=== PATIENT | female | born 1970 ===

== ENCOUNTER 2016-08-06 19:53 | Inpatient (IN) | payer MEDICAID ==
[~2016-08-06] VITALS: Ht 154.9 cm; Wt 75.6 kg
[2016-08-06] MEDS ORDERED: SOD CHLORIDE 0.9% 1,000 ML IV STA (23:47)
[2016-08-06] MEDS ORDERED: ONDANSETRON 4 MG INJ IV STA (23:47)
[2016-08-06] MEDS ORDERED: morphine 4 MG/ML VIAL IV STA (23:47)
--- NOTE | 2016-08-07 00:56 | RADRPT ---
PROCEDURE: US Pelvis. CLINICAL INDICATION: Pelvic pain and swelling TECHNIQUE: Multiple sonographic images of the pelvis were obtained utilizing a transabdominal and endovaginal technique. The images were reviewed on a PACS workstation. COMPARISON: None available FINDINGS: Uterus: Normal in size, contour and echogenicity with no evidence for myometrial masses. Size is est imated at 10.2 x 5.2 x 4.6 cm. Cervix: Trace amount of fluid is present Endometrium: Normal in thickness for the patient's provided age and presumed premenopausal status; 11.3 mm. Right ovary / adnexa: Heterogeneous in echotexture and enlarged in size estimated at 14.1 x 11.4 x 8.5 cm. No evidence for solid masses, normal blood flow on Doppler interrogation. Multiple ovarian cysts are present the largest estimated at 7.6 x 6.8 x 5.6 cm. There is some internal hemorrhage or debris within some of the cysts. A small amount of free fluid is present in the right adnexa. Left ovary/adnexa: The ovary is not visualized. There is no evidence of adnexal mass. Cul-de-sac: Small amount of free fluid. RPTAT:HJJR IMPRESSION: 1. Right ovarian enlargement caused by multiple cysts of the right ovary the largest measuring 7.6 cm in greatest dimension with a small amount of free fluid in the right adnexa and cul-de-sac. Sono graphic follow-up is recommended. 2. Sonographically normal uterus with normal endometrial thickness for the patient's age and presum ed premenopausal status. 3. Nonvisualization of the left ovary. Physician Mykel Date Time Electronically viewed and signed by Physician Mykel on 08/07/2016 00:56 JR/
[2016-08-07 01:45] LABS: ADD UMIC YES; URINE BILIRUBIN (Dip) NEGATIVE (NEGATIVE); URINE BLOOD (Dip) TRACE (NEGATIVE); URINE COLOR LT. YELLOW (YELLOW); URINE GLUCOSE (Dip) NEGATIVE (NEGATIVE); URINE KETONES (Dip) TRACE (NEGATIVE); URINE LEUKOCYTE ESTERASE (Dip) NEGATIVE (NEGATIVE); URINE NITRITE (Dip) NEGATIVE (NEGATIVE); URINE TOTAL PROTEIN (Dip) NEGATIVE (NEGATIVE); URINE UROBILINOGEN (Dip) 0.2 E.U./dL (0.1-1.0)
[2016-08-07 01:47] LABS: BASOPHILS % 0.4 % (0.0-2.0); EOSINOPHILS # 0.1 10^3/ul (0.0-0.5); EOSINOPHILS % 1.5 % (0.0-7.0); HEMATOCRIT 32.7 % (37.0-47.0); HEMOGLOBIN 10.9 g/dl (12.0-16.0); LYMPHOCYTES # 1.7 10^3/ul (0.8-2.9); LYMPHOCYTES % 21.6 % (15.0-51.0); MEAN CORPUSCULAR HEMOGLOBIN 26.8 pg (29.0-33.0); MEAN CORPUSCULAR HGB CONC 33.3 g/dl (32.0-37.0); MEAN CORPUSCULAR VOLUME 80.5 fl (82.0-101.0); MEAN PLATELET VOLUME 8.6 fl (7.4-10.4); MONOCYTE # 0.5 10^3/ul (0.3-0.9); MONOCYTES % 5.9 % (0.0-11.0); NEUTROPHIL # 5.4 10^3/ul (1.6-7.5); NEUTROPHILS % 70.6 % (39.0-77.0); PLATELET COUNT 357 10^3/UL (140-440); RED BLOOD COUNT 4.06 10^6/ul (4.20-5.40); RED CELL DISTRIBUTION WIDTH 13.7 % (11.5-14.5); UNCORRECTED WBC 7.7 10^3/ul (4.8-10.8); WHITE BLOOD COUNT 7.7 10^3/ul (4.8-10.8)
[2016-08-07 01:50] LABS: CONDITION 1; LH ANALYZER COMMENTS 1
[2016-08-07 01:59] LABS: ALBUMIN 4.4 g/dl (3.3-4.9)
[2016-08-07 02:00] LABS: POTASSIUM 3.5 mmol/L (3.5-5.1)
[2016-08-07 02:02] LABS: ALBUMIN/GLOBULIN RATIO 1.33; BILIRUBIN,INDIRECT 0.4 mg/dl (0-1.1); BILIRUBIN,TOTAL 0.4 mg/dl (0.2-1.3); CREATININE 0.61 mg/dl (0.44-1.00); TOTAL PROTEIN 7.7 g/dl (6.1-8.1)
[2016-08-07 02:03] LABS: CALCIUM 9.5 mg/dl (8.4-10.2)
[2016-08-07] MEDS ORDERED: SOD CHLORIDE 0.9% 0 ML ONE (02:06)
[2016-08-07] MEDS ORDERED: IOHEXOL 300MG/ML 150 ML BTL ONE ×2 (02:06→02:54)
--- NOTE | 2016-08-07 02:07 | ERA ---
ER Documentation Chief Complaint Date/Time DATE: 08/07/16 Chief Complaint Right pelvic pain (BRI MARTINEZ PA-C) HPI The patient is a 46-year-old female who presents to the Emergency Department with complaint of sudden onset of right pelvic pain that began at 4:00 pm today. The patient reports that over the past 9 months she has been experiencing intermittent right pelvic pain. She has seen multiple different providers for evaluation, but no source of her pain has been identified. Six weeks ago the patient had an abdominoplasty. Shortly after the surgery, the patient had recurrence of her right pelvic pain, and went to see her doctor, Dr. Gabriel (Oscar Saenz, last week. The patient had an ultrasound performed, where, per the MD's note, a "solid right ovarian mass" was noted. Due to this finding the patient was advised to follow up at the Emergency Department for MRI with IV contrast for evaluation. However, because the patient's pain was minimal, she decided to wait until doing so. Today, at 4:00 pm, the patient had sudden onset of right pelvic pain. The pain is sharp in nature, which she currently rates as 10/10. She notes associated nausea, with multiple episodes of nonbilious, nonbloody emesis. She denies any vaginal bleeding or new vaginal discharge. Denies fevers or chills. Denies constipation or diarrhea. The patient's last bowel movement was this morning, and normal. The patient's last pap smear was September 2015, and normal. Last mammogram was September 2015, and normal. The patient's maternal aunt had ovarian cancer. The patient is A0. She experiences monthly menstrual cycles with menorrhagia. (BRI MARTINEZ PA-C) ROS All systems reviewed and are negative except as per history of present illness. 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 Patient is clutching the emesis bag, actively vomiting. HEENT: Head is normocephalic, atraumatic. No scleral pallor or icterus. Conjunctiva pink. Mildly dry mucous membranes. NECK: Supple. RESPIRATORY: Lungs are clear to auscultation bilaterally. Equal breath sounds. Normal expiratory effort. CARDIOVASCULAR: Regular rate and rhythm. S1 and S2 normal. No murmurs. Distal pulses are palpable, 2+ bilaterally. Capillary refill is less than 2 seconds. GASTROINTESTINAL: Abdomen is soft and non-distended. Moderate tenderness to palpation over the right pelvic region. Right-sided abdominal fullness and pain. Positive guarding. No rebound tenderness. Positive bowel sounds. No pulsatile masses. Abdominoplasty incisional scars noted to suprapubic abdomen. Umbilical incisional scar. FLANK: No CVA tenderness. EXTREMITIES: No clubbing, cyanosis, or edema. Normal skin perfusion. Moving all extremities. Muscle tone is normal. No focal swelling or erythema. NEUROLOGIC: The patient is alert, awake, and oriented x 3. No focal neurologic deficits. INTEGUMENT: Abdominoplasty incisional scar noted. No dehiscence. PSYCHIATRIC: Cooperative. (BRI MARTINEZ PA-C) Result Diagram: 08/07/1610008/07/16 0101 Results 24 hrs Laboratory Tests Test 08/07/16 01:01 08/07/16 01:05 Alanine Aminotransferase (ALT/SGPT) 24IU/L Albumin 4.4g/dl Albumin/Globulin Ratio 1.33 Alkaline Phosphatase 67IU/L Anion Gap 20 Aspartate Amino Transf (AST/SGOT) 25IU/L Basophils # 0.010^3/ul Basophils % 0.4% Blood Morphology Comment Blood Urea Nitrogen 13mg/dl CA 125 Antigen 28.7U/ml CA 19-9 Antigen 44.1U/ml Calcium Level 9.5mg/dl Carbon Dioxide Level 26mmol/L Carcinoembryonic Antigen 1.0ng/ml Chloride Level 102mmol/L Creatinine 0.61mg/dl Direct Bilirubin 0.00mg/dl Eosinophils # 0.110^3/ul Eosinophils % 1.5% Globulin 3.30g/dl Glucose Level 95mg/dl Hematocrit 32.7% Hemoglobin 10.9g/dl Indirect Bilirubin 0.4mg/dl Lipase 68U/L Lymphocytes # 1.710^3/ul Lymphocytes % 21.6% Mean Corpuscular Hemoglobin 26.8pg Mean Corpuscular Hemoglobin Concent 33.3g/dl Mean Corpuscular Volume 80.5fl Mean Platelet Volume 8.6fl Monocytes # 0.510^3/ul Monocytes % 5.9% Neutrophils # 5.410^3/ul Neutrophils % 70.6% Nucleated Red Blood Cells # 0.010^3/ul Nucleated Red Blood Cells % 0.0/100WBC Platelet Count 10175^3/UL Potassium Level 3.5mmol/L Red Blood Count 4.0610^6/ul Red Cell Distribution Width 13.7% Sodium Level 144mmol/L Total Bilirubin 0.4mg/dl Total Protein 7.7g/dl White Blood Count 7.710^3/ul Urine Bilirubin NEGATIVE Urine Clarity CLEAR Urine Color LT. YELLOW Urine Glucose NEGATIVE% Urine Hemoglobin TRACE Urine Ketones TRACE Urine Leukocyte Esterase NEGATIVE Urine Microscopic RBC 0-2/HPF Urine Microscopic WBC 0-2/HPF Urine Nitrite NEGATIVE Urine Specific [place] 1.025 Urine Squamous Epithelial Cells FEW Urine Total Protein NEGATIVE Urine Urobilinogen 0.2 E.U./dL Urine pH 6.0 Current Medications Medications (Trade) Dose Ordered Sig/Zack Route PRN Reason Start Time Stop Time Status Last Admin Dose Admin Sodium Chloride (NS) 1,000 ml @ 1,000 mls/hr Q1H STAT IV 08/06/16 23:47 08/07/16 00:46 DC 08/07/16 01:16 Morphine Sulfate (morphine) 4 mg ONCE STAT IV 08/06/16 23:47 08/06/16 23:49 DC 08/07/16 01:16 Ondansetron HCl (Zofran Inj) 4 mg ONCE STAT IV 08/06/16 23:47 08/06/16 23:49 DC 08/07/16 01:16 IV Flush 10 ml 10 ml STK-MED ONCE .ROUTE 08/07/16 02:06 08/07/16 02:07 DC 08/07/16 02:06 Sodium Chloride (NS) 0 ml @ ud STK-MED ONCE .ROUTE 08/07/16 02:06 08/07/16 02:07 DC Iohexol 150 ml 150 ml STK-MED ONCE .ROUTE 08/07/16 02:06 08/07/16 02:07 DC 08/07/16 02:06 Sodium Chloride (NS) 100 ml @ ud STK-MED ONCE .ROUTE 08/07/16 02:54 08/07/16 02:55 DC 08/07/16 03:08 Iohexol (Omnipaque 300mg/ ml) 150 ml STK-MED ONCE .ROUTE 08/07/16 02:54 08/07/16 02:55 DC 08/07/16 03:08 Ondansetron HCl (Zofran Inj) 4 mg BRIDGE ORDER PRN IV NAUSEA AND/OR VOMITING 08/07/16 03:30 08/08/16 03:29 Acetaminophen (Tylenol Tab) 650 mg ER BRIDGE PRN PO MILD PAIN/FEVER 08/07/16 03:30 08/08/16 03:29 (DARRELL MENDOZA DO) Procedures/MDM The patient's case was reviewed and discussed with Dr. Mendoza, who agrees with the plan of care including labs, treatment and advanced imaging as appropriate. Dr. Mendoza recommends consultation of WOODWIND INSTRUMENTS INSPECTOR. DIAGNOSTIC TESTS AND INTERPRETATION: PROCEDURE: US Pelvis. CLINICAL INDICATION: Pelvic pain and swelling TECHNIQUE: Multiple sonographic images of the pelvis were obtained utilizing a transabdominal and endovaginal technique. The images were reviewed on a PACS workstation. COMPARISON: None available FINDINGS: Uterus: Normal in size, contour and echogenicity with no evidence for myometrial masses. Size is estimated at 10.2 x 5.2 x 4.6 cm. Cervix: Trace amount of fluid is present Endometrium: Normal in thickness for the patient's provided age and presumed premenopausal status; 11.3 mm. Right ovary / adnexa: Heterogeneous in echotexture and enlarged in size estimated at 14.1 x 11.4 x 8.5 cm. No evidence for solid masses, normal blood flow on Doppler interrogation. Multiple ovarian cysts are present the largest estimated at 7.6 x 6.8 x 5.6 cm. There is some internal hemorrhage or debris within some of the cysts. A small amount of free fluid is present in the right adnexa. Left ovary/adnexa: The ovary is not visualized. There is no evidence of adnexal mass. Cul-de-sac: Small amount of free fluid. IMPRESSION: 1. Right ovarian enlargement caused by multiple cysts of the right ovary the largest measuring 7.6 cm in greatest dimension with a small amount of free fluid in the right adnexa and cul-de-sac. Sonographic follow-up is recommended. 2. Sonographically normal uterus with normal endometrial thickness for the patient's age and presumed premenopausal status. 3. Nonvisualization of the left ovary. Physician Mykel Date Time Electronically viewed and signed by Physician Mykel on 08/07/2016 00:56 PROCEDURE: CT Abdomen and pelvis with contrast. CLINICAL INDICATION: Abdominal pain. TECHNIQUE: CT scan of the abdomen and pelvis with contrast was performed on a multi-detector high-resolution CT scanner. The patient was scanned following the uncomplicated intravenous administration of 100 cc of Omnipaque 300. Coronal and sagittal reformatted images were obtained from the axial source images. Images were reviewed on a high-resolution PACS workstation. One or more of the following dose reduction techniques were used: * Automated exposure control. * Adjustment of the mA and/or kV according to patient size. * Use of iterative reconstruction technique. Exam CTD/vol = 12.22 mGy. Total exam DLP = 724.90 mGy-cm. COMPARISON: None. FINDINGS: Evaluation of the lung bases demonstrates no pleural or parenchymal disease. Abdomen: The liver is normal in size. There is no focal mass or dilatation of the biliary tree. The gallbladder is not distended. The spleen, pancreas and bilateral adrenal glands are within normal limits. Bilateral kidneys are normal in size with symmetric enhancement. There is no focal mass, hydronephrosis or hydroureter. There is no retroperitoneal adenopathy. The abdominal aorta is of normal caliber. There is no abnormal bowel wall thickening or distension. There is no bowel obstruction or free air. A normal appendix is identified. There is no diverticulosis or diverticulitis. There is no ascites. Pelvis: The bladder is unremarkable. There is a large multicystic structure with soft tissue components within the right adnexa measuring 12.0 x 11.0 cm. The uterus is unremarkable. There is mild pelvic free fluid. There are small cyst within the left ovary with the largest measuring 1.7 x 1.4 cm. There is no significant pelvic adenopathy. There is subcutaneous stranding within the anterior pelvic wall with a small fluid collection measuring 10.5 cm AP by 4.0 cm transverse by 3.7 cm. Evaluation of the osseous structures demonstrates multiple small sclerotic densities within the pelvis and proximal femurs. IMPRESSION: Large multicystic structure with soft tissue components within the right adnexa suspicious for cystadenoma/cystadenocarcinoma. Mild pelvic free fluid. Multiple small sclerotic densities within the pelvis and bilateral proximal femurs could represent bone islands; however, follow-up for metastatic disease is recommended. Subcutaneous stranding within the anterior pelvic wall with small fluid collection measuring 10.5 x 4.0 x 3.7 cm. CONSULTATION: WOOD[employer] INSTRUMENTS INSPECTOR: Dr. Lora 01:19 am. Discussed patient presentation and imaging results. Dr. Lora recommends obtaining tumor markers (CEA, CA 19-9, CA125), and states that she will come down and evaluate the patient bedside. She agrees to consult on the patient's case. 02:30 Dr. Lora evaluated the patient bedside. Right-sided abdominal and pelvic fullness noted, with discomfort. Additionally, a left breast mass noted at 3-[address] Lora, and she recommends ultrasound imaging for further evaluation. Dr. Lora states that it is possible that the patient is having intermittent torsion vs. adnexal mass/torsion vs. pain secondary to hemorrhagic cysts vs. large ovarian/abdominal mass. She recommends admitting the patient under the hospitalist to Med/Surg, with WOOD[employer] INSTRUMENTS INSPECTOR consultation. MEDICAL DECISION MAKING: This is a 46-year-old female presenting to the Emergency Department with complaint of sudden right pelvic pain. Patient had tenderness to palpation of the right pelvic region, with positive guarding. She had right-sided abdominal fullness and tenderness noted. The patient notes that approximately one week ago she obtained outpatient ultrasound imaging, which revealed a solid right ovarian mass. She developed sudden pain at 4:00 pm today, with associated nausea and multiple episodes of nonbilious, nonbloody emesis. Ultrasound imaging was performed upon presentation to the ED, which revealed right ovarian enlargement caused by multiple cysts of the right ovary, the largest measuring 7.6 x 6.8 x 5.6 cm, with a small amount of free fluid in the right adnexa and cul-de-sac. There was some internal hemorrhage vs. debris noted in some of the cysts. Given the patient's pain and recent history, OB/ DELIVERY AND MAIL SORTER consultation was obtained. Dr. Lora, WOODWIND INSTRUMENTS INSPECTOR, recommends obtaining tumor markers, and admitting the patient with WOODWIND INSTRUMENTS INSPECTOR consultation. CT imaging performed, which revealed a large multicystic structure with soft tissue components within the right adnexa suspicious for cystadenoma/ cystadenocarcinoma. There are also multiple small sclerotic densities within the pelvis and bilateral proximal femurs. The patient will be admitted to Med/ Surg, under the care of Dr. Washington, for further evaluation and management. Ultrasound imaging of the left breast in pending. WOOD[employer] INSTRUMENTS INSPECTOR will consult. (BRI MARTINEZ PA-C) Saw this patient along with the physician's gift shop assistant. She has a large irregular pelvic mass that is likely metastatic. We spoke with the on-call developer advocate, Dr. Lora, who is seeing the patient in consult for this pelvic mass. She was in after she had [place] seen the patient with the CT results came back in she was made aware of the results. She plans to obtain further imaging in the a.m. I communicate with Dr. medina to admit the patient to medical surgical floor. Patient is also aware of these results in her pain is well controlled currently. (DARRELL MENDOZA DO) Departure Diagnosis: Primary Impression: Ovarian mass, right Additional Impressions: Right ovarian enlargement Pelvic pain Condition: Stable BRI MARTINEZ PA-C Aug 07, 2016 02:07 DARRELL MENDOZA DO Aug 07, 2016 03:47
--- NOTE | 2016-08-07 02:48 | CONS ---
Date/Time of Note Date/Time of Note DATE: 08/07/16 TIME: 02:45 Assessment/Plan Assessment/Plan Chief Complaint/Hosp Course 36-year-old female with history of right-sided lower abdominal pain significantly worsened since yesterday associated with nausea and vomiting with ultrasound and CT findings consistent with a large pelvic mass CT finding concerning for possible malignancy per preliminary report by ERAN at the emergency department to me Formal report is still pending Currently no evidence of acute abdomen Tumor markers were ordered and pending Patient currently is hemodynamically stable and pain controlled with IV pain medication. Patient will be admitted to [facility] We will continue pain control Will be followed by labors ICT HELP DESK OFFICER tomorrow after the labs Consider consultation with LEATHER SKINNER oncologist by upcoming labors tomorrow. Will be directly communicated to LEATHER SKINNER oncologist for evaluation' Right-sided breast lump, ultrasound of the left breast requested. Consider diagnostic mammogram of the right breast as well as outpatient This will be followed by upcoming laborist. Problems: Additional Assessment/Plan Thank you for allowing me to participate in this patient's care Consultation Date/Type/Reason Admit Date/Time Date of Consultation: Aug 07, 2016 Type of Consultation: LEATHER SKINNER Reason for Consultation LEATHER SKINNER evaulation due to lower abdominal pain and large multicystic adnexal mass noted in pelvic ultrasound. Hx of Present Illness 46 years old presented to ED with complaint of sudden worsening of lower abdominal pain started yesterday afternoon at 4:00 associated with nausea and vomiting. Patient reports having lower abdominal pain intermittently on and off since last year. She reports have been seen by many different providers she had abdominoplasty about 6 weeks ago. When she reported to her provider presence of lower abdominal pain and subsequently she had a ultrasound a week ago that showed large cystic mass in right adnexum and was advised by her provider to have a MRI of the abdomen and pelvis with contrast. per patient pain significantly worsened since yesterday that brought her again to emergency room. It was associated with nonbilious vomiting. She denies any fever or chills. She denies any diarrhea. Patient denies any change in her bowel habits. Ultrasound today in the emergency room Multiple ovarian cysts in right adnexa, largest estimated at 7.6 x 6.8 x 5.6 cm. There is some internal hemorrhage or debris within some of the cysts. A small amount of free fluid is present in the right adnexa. . Patient denies any prior history of ovarian cyst in the past. She denies any other gynecologic problem except that her cycles are heavier. Reports that she had her last Pap smear in September 2015 as well as her mammogram that was normal. Subjective hx not possible: other (Patient is in moderate distress ) Constitutional: no complaints Eyes: no complaints ENT: no complaints Respiratory: no complaints Cardiovascular: no complaints Gastrointestinal: no complaints Genitourinary: no complaints Musculoskeletal: no complaints Skin: no complaints Neurologic: no complaints Endocrine: no complaints Lymphatic: no complaints Psychological: no complaints Immunologic: no complaints Additional Comments Lower abdominal pain more in the right side Past Medical History Reports a history of hyperlipidemia Denies any other medical problems ICT HELP DESK OFFICER history: Status post section 3 Last Pap smear September 2015 was normal. Denies any prior history of abnormal Pap in the past Last mammogram September 2015 per patient benign Reports history of bilateral breast biopsies due to questionable breast lumps about 18 years ago that was benign Past Surgical History Status post umbilical hernia repair, 6 weeks ago Status post inguinal hernia repair, 6 weeks ago Status post abdominoplasty 6 weeks ago Status post section 3 Family History Significant Family History: no pertinent family hx Social History Alcohol Use: none Smoking Status: Never smoker Drug Use: none Other Social History Patient is unemployed currently Exam/Review of Systems Vital Signs Vitals Vital Signs Date Time Temp Pulse Resp B/P Pulse Ox O2 Delivery O2 Flow Rate FiO2 08/06/16 20:08 98.9 122 20 183/94 98 Exam Constitutional: alert, oriented, other (Patient is in moderate distress), well developed Psych: no complaints Head: atraumatic, normocephalic Eyes: EOMI, nl conjunctiva, nl lids ENMT: nl external ears & nose, nl lips & teeth Neck: non-tender, supple Respiratory: clear to auscultation, normal air movement Cardiovascular: nl pulses, regular rate and rhythm Gastrointestinal: nl liver, spleen (Moderate tenderness in the right lower abdomen with a large pelvic mass more towards in the right lower abdomen failed up to the level of umbilicus with moderate tenderness to palpation. No rebound tenderness no guarding, no rigidity, no evidence of acute abdomen), soft Genitourinary - Female: other (Speculum examination: Cervix looks normal with no abnormal vaginal discharge or cervical discharge. Bimanual examination: Uterus cannot be separately palpable. There is fullness in the right side of the pelvis with evidence of a large pelvic mass with pressure effect to the right side of the pelvis. Mass palpable up to the level of umbilicus. Cannot appreciate adnexa and uterus separately from this pelvic mass.) Extremities: normal pulses Neurological: STAFFING RN II-XII intact, nl mental status, nl speech, nl strength Skin: nl turgor, rash or lesions Lymph: nl lymph nodes Additional Comments Breast exam: There is a palpable lump in the right breast at 2:00 about 2 and half by 2 and half centimeter, mobile. No abnormal nipple discharge. No nipple lesion. No tenderness to palpation. Left breast with area of nodularity at the 11:00, left breast lumpy in exam. PROCEDURE: US Pelvis. CLINICAL INDICATION: Pelvic pain and swelling TECHNIQUE: Multiple sonographic images of the pelvis were obtained utilizing a transabdominal and endovaginal technique. The images were reviewed on a PACS workstation. COMPARISON: None available FINDINGS: Uterus: Normal in size, contour and echogenicity with no evidence for myometrial masses. Size is estimated at 10.2 x 5.2 x 4.6 cm. Cervix: Trace amount of fluid is present Endometrium: Normal in thickness for the patient's provided age and presumed premenopausal status; 11.3 mm. Right ovary / adnexa: Heterogeneous in echotexture and enlarged in size estimated at 14.1 x 11.4 x 8.5 cm. No evidence for solid masses, normal blood flow on Doppler interrogation. Multiple ovarian cysts are present the largest estimated at 7.6 x 6.8 x 5.6 cm. There is some internal hemorrhage or debris within some of the cysts. A small amount of free fluid is present in the right adnexa. Left ovary/adnexa: The ovary is not visualized. There is no evidence of adnexal mass. Cul-de-sac: Small amount of free fluid. RPTAT:HJJR IMPRESSION: 1. Right ovarian enlargement caused by multiple cysts of the right ovary the largest measuring 7.6 cm in greatest dimension with a small amount of free fluid in the right adnexa and cul-de-sac. Sonographic follow-up is recommended. 2. Sonographically normal uterus with normal endometrial thickness for the patient's age and presumed premenopausal status. 3. Nonvisualization of the left ovary. Physician Mykel Date Time Electronically viewed and signed by Moisés Baig Physician on 08/07/2016 00:56 JR/ CC: BRI MARTINEZ PA-C CT of the pelvis and abdomen requested. 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 , Results Result Diagram: 08/07/16 01008/07/16 0101 Results 24 hrs Laboratory Tests Test 08/07/16 01:01 08/07/16 01:05 Alanine Aminotransferase (ALT/SGPT) 24 Albumin 4.4 Albumin/Globulin Ratio 1.33 Alkaline Phosphatase 67 Anion Gap 20 H Aspartate Amino Transf (AST/SGOT) 25 Basophils # 0.0 Basophils % 0.4 Blood Morphology Comment Blood Urea Nitrogen 13 Calcium Level 9.5 Carbon Dioxide Level 26 Chloride Level 102 Creatinine 0.61 Direct Bilirubin 0.00 Eosinophils # 0.1 Eosinophils % 1.5 Globulin 3.30 H Glucose Level 95 Hematocrit 32.7 L Hemoglobin 10.9 L Indirect Bilirubin 0.4 Lipase 68 Lymphocytes # 1.7 Lymphocytes % 21.6 Mean Corpuscular Hemoglobin 26.8 L Mean Corpuscular Hemoglobin Concent 33.3 Mean Corpuscular Volume 80.5 L Mean Platelet Volume 8.6 Monocytes # 0.5 Monocytes % 5.9 Neutrophils # 5.4 Neutrophils % 70.6 Nucleated Red Blood Cells # 0.0 Nucleated Red Blood Cells % 0.0 Platelet Count 357 Potassium Level 3.5 Red Blood Count 4.06 L Red Cell Distribution Width 13.7 Sodium Level 144 Total Bilirubin 0.4 Total Protein 7.7 White Blood Count 7.7 Urine Bilirubin NEGATIVE Urine Clarity CLEAR Urine Color LT. YELLOW Urine Glucose NEGATIVE Urine Hemoglobin TRACE Urine Ketones TRACE H Urine Leukocyte Esterase NEGATIVE Urine Microscopic RBC Pending Urine Microscopic WBC Pending Urine Nitrite NEGATIVE Urine Specific [place] 1.025 Urine Total Protein NEGATIVE Urine Urobilinogen 0.2 E.U./dL Urine pH 6.0 HALEY VU MD Aug 07, 2016 02:48
[2016-08-07] MEDS ORDERED: SOD CHLORIDE 0.9% 100 ML ONE (02:54)
[2016-08-07 03:07] LABS: CANCER ANTIGEN 125 28.7 U/ml (0.0-35.0)
[2016-08-07 03:11] LABS: SQUAMOUS EPITHELIAL CELL,UR FEW; URINE RBCS 0-2 /HPF (0)
[2016-08-07 03:12] LABS: CANCER ANTIGEN 19-9 44.1 U/ml (0.0-37.0)
--- NOTE | 2016-08-07 03:20 | RADRPT ---
PROCEDURE: CT Abdomen and pelvis with contrast. CLINICAL INDICATION: Abdominal pain. TECHNIQUE: CT scan of the abdomen and pelvis with contrast was performed on a multi-detector high -resolution CT scanner. The patient was scanned following the uncomplicated intravenous administrat ion of 100 cc of Omnipaque 300. Coronal and sagittal reformatted images were obtained from the axia l source images. Images were reviewed on a high-resolution PACS workstation. One or more of the following dose reduction techniques were used: - Automated exposure control. - Adjustment of the mA and/or kV according to patient size. - Use of iterative reconstruction technique. Exam CTD/vol = 12.22 mGy. Total exam DLP = 724.90 mGy-cm. COMPARISON: None. FINDINGS: Evaluation of the lung bases demonstrates no pleural or parenchymal disease. Abdomen: The liver is normal in size. There is no focal mass or dilatation of the biliary tree. T he gallbladder is not distended. The spleen, pancreas and bilateral adrenal glands are within pura l limits. Bilateral kidneys are normal in size with symmetric enhancement. There is no focal mass, hydronephrosis or hydroureter. There is no retroperitoneal adenopathy. The abdominal aorta is of normal caliber. There is no abnormal bowel wall thickening or distension. There is no bowel obstruction or free air . A normal appendix is identified. There is no diverticulosis or diverticulitis. There is no asci luis carlos. Pelvis: The bladder is unremarkable. There is a large multicystic structure with soft tissue compo nents within the right adnexa measuring 12.0 x 11.0 cm. The uterus is unremarkable. There is mild pelvic free fluid. There are small cyst within the left ovary with the largest measuring 1.7 x 1.4 cm. There is no significant pelvic adenopathy. There is subcutaneous stranding within the anterior pelvic wall with a small fluid collection measuring 10.5 cm AP by 4.0 cm transverse by 3.7 cm. Evaluation of the osseous structures demonstrates multiple small sclerotic densities within the pelv is and proximal femurs. IMPRESSION: Large multicystic structure with soft tissue components within the right adnexa suspicious for cysta denoma/cystadenocarcinoma. Mild pelvic free fluid. Multiple small sclerotic densities within the pelvis and bilateral proximal femurs could represent b one islands; however, follow-up for metastatic disease is recommended. Subcutaneous stranding within the anterior pelvic wall with small fluid collection measuring 10.5 x 4.0 x 3.7 cm. .Khoa Manriquez MD, MD Date Time Electronically viewed and signed by .Khoa Manriquez MD, MD on 08/07/2016 03:20 .T/
[2016-08-07] MEDS ORDERED: ONDANSETRON 4 MG INJ IV PRN ×2 (03:30→08:00)
[2016-08-07] MEDS ORDERED: HYDROmorphONE 1 MG/ML SYG IM PRN (04:00)
[2016-08-07] MEDS: LACTATED RINGER'S 1,000 ML IV SCH ×3 (04:51→19:39)
[2016-08-07] MEDS ORDERED: NACL 0.9% 3 ML SYG IV SCH (08:00)
[2016-08-07] MEDS ORDERED: morphine 2 MG INJ IV PRN (08:00)
--- NOTE | 2016-08-07 08:11 | RADRPT ---
PROCEDURE: BREAST ULTRASOUND CLINICAL INDICATION: Palpable left breast mass. TECHNIQUE: Ultrasound of the whole bilateral breasts and axillae is completed. COMPARISON: None. FINDINGS: There is a benign-appearing 4 mm nodule at right 8 o'clock. No other is identified in either breast . There is no suspicious axillary adenopathy. IMPRESSION: 1. Right 8 o'clock 4 mm benign-appearing nodule for which a 6-month follow-up ultrasound is recommen ded. 2. Recommend also outpatient mammogram to complete the diagnostic workup for the left breast mass. 3. Unremarkable left breast ultrasound. BIRADS 0 (INCOMPLETE- -NEED ADDITIONAL IMAGING EVALUATION) RPTAT: UU .Woodrow Kern MD, Date Time Electronically viewed and signed by .Woodrow Kern MD, on 08/07/2016 08:10 .Z/
[2016-08-07] MEDS ORDERED: LOVA10TA63 PO (08:41)
[2016-08-07] MEDS: ACETAMINOPHEN 325 MG TAB PO PRN ×2 (13:01→19:25)
--- NOTE | 2016-08-07 15:16 | HP ---
Date/Time of Note Date/Time of Note DATE: 08/07/16 TIME: 15:07 Assessment/Plan VTE Prophylaxis VTE Prophylaxis Intervention: heparin Assessment/Plan Assessment/Plan 1. Large Multicystic right Adenexal mass - suspicious for malignancy - f/u tumor markers - f/u SKILLS INSTRUCTOR recs - Oncology consult - Pain mgmt 2. Abdominal Pain: - see # 1 3. Normocytic Anemia - likely 2/2 malignancy - eval for iron def - transfuse as needed HPI/ROS Admit Date/Time Admit Date/Time Hx of Present Illness The patient is a 46-year-old female who presents to the Emergency Department with complaint of sudden onset of right pelvic pain that began at 4:00 pm today. The patient reports that over the past 9 months she has been experiencing intermittent right pelvic pain. She has seen multiple different providers for evaluation, but no source of her pain has been identified. Six weeks ago the patient had an abdominoplasty. Shortly after the surgery, the patient had recurrence of her right pelvic pain, and went to see her doctor, Dr. Gabriel (MaryJalen Saenz, last week. The patient had an ultrasound performed, where, per the MD's note, a "solid right ovarian mass" was noted. Due to this finding the patient was advised to follow up at the Emergency Department for MRI with IV contrast for evaluation. However, because the patient's pain was minimal, she decided to wait until doing so. Today, at 4:00 pm, the patient had sudden onset of right pelvic pain. The pain is sharp in nature, which she currently rates as 10/10. She notes associated nausea, with multiple episodes of nonbilious, nonbloody emesis. She denies any vaginal bleeding or new vaginal discharge. Denies fevers or chills. Denies constipation or diarrhea. The patient's last bowel movement was this morning, and normal. The patient's last pap smear was September 2015, and normal. Last mammogram was September 2015, and normal. The patient's maternal aunt had ovarian cancer. The patient is A0. She experiences monthly menstrual cycles with menorrhagia. ER Course: CT shows Large multicystic structure with soft tissue components within the right adnexa suspicious for cystadenoma/cystadenocarcinoma. Mild pelvic free fluid. Multiple small sclerotic densities within the pelvis and bilateral proximal femurs could represent bone islands; however, follow-up for metastatic disease is recommended. Subcutaneous stranding within the anterior pelvic wall with small fluid collection measuring 10.5 x 4.0 x 3.7 cm. She has already been seen by SKILLS INSTRUCTOR and tumor markers have been ordered. CA19-9 is slightly elevated. ROS Eyes: no complaints ENT: no complaints Respiratory: no complaints Cardiovascular: no complaints Gastrointestinal: no complaints Genitourinary: no complaints Musculoskeletal: no complaints Skin: no complaints Neurologic: no complaints Lymphatic: no complaints Psychological: no complaints Immunologic: no complaints PMH/Family/Social Past Surgical History 1. tummy tuck 2. Hernia repair x 3 3. C/S x 3 Social History Alcohol Use: none Smoking Status: Never smoker Drug Use: none Exam/Review of Systems Vital Signs Vitals Vital Signs Date Time Temp Pulse Resp B/P Pulse Ox O2 Delivery O2 Flow Rate FiO2 08/07/16 14:16 65 17 128/98 100 Room Air 08/07/16 12:00 98.5 Exam Constitutional: alert, oriented, well developed Head: atraumatic, normocephalic Eyes: EOMI, PERRL Respiratory: clear to auscultation, normal air movement Cardiovascular: nl pulses, regular rate and rhythm Gastrointestinal: soft, tender Extremities: normal pulses Labs Result Diagram: 08/07/16 01008/07/16 010 Medications Medications Current Medications Hydromorphone HCl 1 mg 1 mg Q3H PRN IM pain; Start 08/07/16 at 04:00 Lactated Ringer's (Lr) 1,000 ml @ 125 mls/hr Q8H IV Last administered on t 11:04; Admin Dose 125 MLS/HR; Start 08/07/16 at 04:00 Ondansetron HCl (Zofran Inj) 4 mg Q6H PRN IV NAUSEA AND/OR VOMITING; Start at 08:00 Acetaminophen (Tylenol Tab) 650 mg Q6H PRN PO PAIN LEVEL 1-3 OR FEVER; Start at 08:00 Morphine Sulfate (morphine) 2 mg Q4H PRN IV SEVERE PAIN LEVEL 7-10; Start 08/07 at 08:00 DELPHINE RICHARDS MD Aug 07, 2016 15:16
[2016-08-07 18:02] VITALS: TEMP 98.2
[2016-08-07 20:30] VITALS: BP 137/62; PULSE 69; RESP 18
[2016-08-07 21:00] VITALS: Ht 154.9 cm; Wt 75.6 kg
[2016-08-08] MEDS: LACTATED RINGER'S 1,000 ML IV SCH ×3 (00:14→16:31)
[2016-08-08 06:50] LABS: BASOPHILS % 0.6 % (0.0-2.0); EOSINOPHILS # 0.2 10^3/ul (0.0-0.5); EOSINOPHILS % 3.5 % (0.0-7.0); HEMATOCRIT 29.1 % (37.0-47.0); HEMOGLOBIN 9.8 g/dl (12.0-16.0); LYMPHOCYTES # 1.7 10^3/ul (0.8-2.9); MEAN CORPUSCULAR HEMOGLOBIN 27.2 pg (29.0-33.0); MEAN CORPUSCULAR HGB CONC 33.7 g/dl (32.0-37.0); MEAN CORPUSCULAR VOLUME 80.7 fl (82.0-101.0); MEAN PLATELET VOLUME 8.3 fl (7.4-10.4); MONOCYTE # 0.3 10^3/ul (0.3-0.9); MONOCYTES % 5.6 % (0.0-11.0); NEUTROPHIL # 3.9 10^3/ul (1.6-7.5); NEUTROPHILS % 63.3 % (39.0-77.0); PLATELET COUNT 273 10^3/UL (140-440); UNCORRECTED WBC 6.2 10^3/ul (4.8-10.8); WHITE BLOOD COUNT 6.2 10^3/ul (4.8-10.8)
[2016-08-08 06:52] LABS: ALBUMIN 3.1 g/dl (3.3-4.9)
[2016-08-08 06:53] LABS: POTASSIUM 3.6 mmol/L (3.5-5.1)
[2016-08-08 06:55] LABS: ALBUMIN/GLOBULIN RATIO 1.24; BILIRUBIN,INDIRECT 0.5 mg/dl (0-1.1); BILIRUBIN,TOTAL 0.5 mg/dl (0.2-1.3); CREATININE 0.53 mg/dl (0.44-1.00); TOTAL PROTEIN 5.6 g/dl (6.1-8.1)
[2016-08-08 06:56] LABS: CALCIUM 8.2 mg/dl (8.4-10.2); MAGNESIUM 1.8 mg/dl (1.7-2.5); PHOSPHORUS 4.4 mg/dl (2.5-4.9)
[2016-08-08 06:57] LABS: CHOL/HDL RATIO 4.6 RATIO
[2016-08-08 07:14] LABS: CONDITION 1; LH ANALYZER COMMENTS 1
[2016-08-08 07:56] VITALS: BP 103/70; RESP 18
[2016-08-08] MEDS: ACETAMINOPHEN 325 MG TAB PO PRN ×3 (08:09→22:19)
--- NOTE | 2016-08-08 11:23 | PN ---
DATE: 08/08/2016 SUBJECTIVE: The patient is still having some right flank pain and less nausea symptoms, awaiting to be seen by DEVELOPMENT REPRESENTATIVE oncology team. OBJECTIVE: VITAL SIGNS: Stable. GENERAL: The patient is sitting up in bed, answering questions appropriately. No acute distress. HEENT: Pupils equal, round, reactive to light. Extraocular muscles intact. LUNGS: Clear to auscultation bilaterally. CARDIOVASCULAR: S1, S2 heard. No rubs or gallops. ABDOMEN: Mild tenderness to palpation right flank area, otherwise, no rebound or guarding. Normal bowel sounds. MUSCULOSKELETAL: No lower extremity edema bilaterally. NEUROLOGIC: No focal deficits. LABORATORY DATA: Comprehensive metabolic panel was normal. Again, the CA 19-9 is elevated at 44.1. CBC is normal. Pelvic ultrasound shows right ovarian enlargement caused by multiple cysts of the right ovary. The largest 7.6 cm in greatest dimension, small amount of free fluid in the right adne xa and cul-de-sac. ASSESSMENT AND PLAN: A 46-year-old female with right pelvic pain with large multicystic right adnex al mass suspicious for malignancy. 1. Right flank pain, again secondary to large multicystic right adnexal mass, elevated CA 19-9. Fo llow up DEVELOPMENT REPRESENTATIVE/ONC recommendations per OB team. They are going to see the patient later this afternoon . Continue antiemetic medicines and pain control medications as well. Follow up lab results as wel l. Follow up GETTER FILLER recommendations as well. 2. Normocytic anemia, possibly secondary to malignancy. Hemoglobin is presently stable. MCV is tai rderline low normal. Continue to monitor for now. Consider iron tablets. 3. Gastrointestinal prophylaxis. Add PPI. 4. Deep venous thrombosis prophylaxis, SCDs. Dictated By: ADAMARIS GONZALEZ Conf#: [id number] DID#: [id number]
--- NOTE | 2016-08-08 14:50 | CONS ---
Date/Time of Note Date/Time of Note DATE: 08/08/16 TIME: 14:49 Consultation Date/Type/Reason Admit Date/Time Hx of Present Illness Obie Ford M.D. [facility] History and Physical Examination Bethany Lucas Date:Aug 08, 2016 :1970 Age: 46 Physicians: C Engineer Sign Out Clerk Oncologist Referring MD: History of the Present Illness: A 46 year old female with a gradually increasing pelvic mass. The mass is complex and 14 cm multicystic associated with intermittent pain. She had a tummy tuck 6 wks ago and the mass is only noted now. Medical history/ROS: all other systems unremarkable. Surgical history: CSx1, recent tummy tuck . Medications: gardisil Allergies: No active allergies recorded Family Hx: non-contributary Social HX: non-contributary ROS: as above Colonoscopy Physical Examination General: Alert. HEENT: Pupils are equal, round, reactive to light and accommodation. Neck: Supple with no masses of lymphadenopathy. Breast: Deferred due to recent examination and responsibility of primary care physician. Chest: Clear to auscultation Heart: Normal rhythm with no murmur. Abdomen: Modertely tender, questionable ascites no organomeglay but pelvic mass. Pelvic exam: central mass no cul-de-sac nodularity noted Rectal: confirmatory with pelvic exam. Neurological: Grossly intact Assessment: Pelvic-abdominal mass Plan: Laparoscopic USO with minilap, possible BSO/LSH, possible UD, possible staging. All risks and benefits of this procedure have been discussed in detail with the patient, as well as alternative treatment strategies and their implications. The patient is aware that there is some possibility of a blood transfusion and its associated risks and benefits. She wishes to proceed and gives her informed consent. Obie Ford M.D. Constitutional: no complaints Eyes: no complaints ENT: no complaints Respiratory: no complaints Cardiovascular: no complaints Gastrointestinal: no complaints Genitourinary: no complaints Musculoskeletal: no complaints Skin: no complaints Neurologic: no complaints Endocrine: no complaints Lymphatic: no complaints Psychological: no complaints Immunologic: no complaints Social History Alcohol Use: none Smoking Status: Never smoker Drug Use: none Exam/Review of Systems Vital Signs Vitals Vital Signs Date Time Temp Pulse Resp B/P Pulse Ox O2 Delivery O2 Flow Rate FiO2 08/08/16 07:56 97.8 68 18 103/70 97 08/07/16 20:30 Room Air Intake and Output 08/07/16 08/07/16 08/08/16 15:00 23:00 07:00 Intake Total 610 ml 710 ml 1470 ml Balance 610 ml 710 ml 1470 ml Results Result Diagram: 08/08/16 0508 08/08/16 0508 Results 24 hrs Laboratory Tests Test 08/08/16 05:08 Alanine Aminotransferase (ALT/SGPT) 26 Albumin 3.1 #L Albumin/Globulin Ratio 1.24 Alkaline Phosphatase 45 Anion Gap 14 Aspartate Amino Transf (AST/SGOT) 24 Basophils # 0.0 Basophils % 0.6 Blood Morphology Comment Blood Urea Nitrogen 7 Calcium Level 8.2 L Carbon Dioxide Level 26 Chloride Level 105 Cholesterol Level 172 Cholesterol/HDL Ratio 4.6 Creatinine 0.53 Direct Bilirubin 0.00 Eosinophils # 0.2 Eosinophils % 3.5 Globulin 2.50 Glucose Level 90 HDL Cholesterol 37 Hematocrit 29.1 L Hemoglobin 9.8 L Indirect Bilirubin 0.5 LDL Cholesterol, Calculated 107 Lymphocytes # 1.7 Lymphocytes % 27.0 Magnesium Level 1.8 Mean Corpuscular Hemoglobin 27.2 L Mean Corpuscular Hemoglobin Concent 33.7 Mean Corpuscular Volume 80.7 L Mean Platelet Volume 8.3 Monocytes # 0.3 Monocytes % 5.6 Neutrophils # 3.9 Neutrophils % 63.3 Nucleated Red Blood Cells # 0.0 Nucleated Red Blood Cells % 0.0 Phosphorus Level 4.4 Platelet Count 273 # Potassium Level 3.6 Red Blood Count 3.60 L Red Cell Distribution Width 14.0 Sodium Level 141 Total Bilirubin 0.5 Total Protein 5.6 #L Triglycerides Level 139 White Blood Count 6.2 Medications Medications Current Medications Hydromorphone HCl 1 mg 1 mg Q3H PRN IM pain; Start 08/07/16 at 04:00 Lactated Ringer's (Lr) 1,000 ml @ 125 mls/hr Q8H IV Last administered on t 08:06; Admin Dose 125 MLS/HR; Start 08/07/16 at 04:00 Ondansetron HCl (Zofran Inj) 4 mg Q6H PRN IV NAUSEA AND/OR VOMITING; Start at 08:00 Acetaminophen (Tylenol Tab) 650 mg Q6H PRN PO PAIN LEVEL 1-3 OR FEVER Last administered on 08/08/16t 08:09; Admin Dose 650 MG; Start 08/07/16 at 08:00 Morphine Sulfate (morphine) 2 mg Q4H PRN IV SEVERE PAIN LEVEL 7-10; Start 08/07 at 08:00 Pantoprazole (Protonix Tab) 40 mg DAILY@06 PO ; Start 08/09/16 at 06:00 OBIE FORD MD Aug 08, 2016 14:50
[2016-08-08 16:38] VITALS: BP 109/57; PULSE 66; RESP 18
[2016-08-08 20:03] VITALS: BP 115/56; RESP 20
--- NOTE | 2016-08-08 22:01 | QN ---
Documentation Comment Laborist Pt seen around 1930. Reports feeling better in terms of pain and N/V. Pain has decreased with pain meds. Able to eat meals today w/o difficulty. No longer constipated. Pt was seen by Dr. Montes De Oca today and plan made for surgery, likely early next week. Pt states her questions were answered to her satisfaction. Continue present management. HERNAN MAYS MD Aug 08, 2016 22:01
[2016-08-09] MEDS: LACTATED RINGER'S 1,000 ML IV SCH ×3 (00:04→16:30)
[2016-08-09 05:06] LABS: BASOPHILS % 0.3 % (0.0-2.0); EOSINOPHILS # 0.2 10^3/ul (0.0-0.5); EOSINOPHILS % 3.1 % (0.0-7.0); HEMATOCRIT 28.3 % (37.0-47.0); HEMOGLOBIN 9.4 g/dl (12.0-16.0); LYMPHOCYTES # 1.6 10^3/ul (0.8-2.9); LYMPHOCYTES % 26.6 % (15.0-51.0); MEAN CORPUSCULAR HEMOGLOBIN 26.5 pg (29.0-33.0); MEAN CORPUSCULAR HGB CONC 33.1 g/dl (32.0-37.0); MEAN PLATELET VOLUME 8.5 fl (7.4-10.4); MONOCYTE # 0.3 10^3/ul (0.3-0.9); MONOCYTES % 5.7 % (0.0-11.0); NEUTROPHIL # 3.9 10^3/ul (1.6-7.5); NEUTROPHILS % 64.3 % (39.0-77.0); PLATELET COUNT 270 10^3/UL (140-440); RED BLOOD COUNT 3.54 10^6/ul (4.20-5.40); RED CELL DISTRIBUTION WIDTH 13.9 % (11.5-14.5); UNCORRECTED WBC 6.1 10^3/ul (4.8-10.8); WHITE BLOOD COUNT 6.1 10^3/ul (4.8-10.8)
[2016-08-09 05:25] LABS: POTASSIUM 3.6 mmol/L (3.5-5.1)
[2016-08-09 05:28] LABS: CALCIUM 8.2 mg/dl (8.4-10.2); CREATININE 0.65 mg/dl (0.44-1.00)
[2016-08-09 05:34] LABS: CONDITION 1; LH ANALYZER COMMENTS 1
[2016-08-09] MEDS: PANTOPRAZOLE (EC) 40 MG TAB PO SCH (05:37)
[2016-08-09 07:16] VITALS: BP 113/67; RESP 17
[2016-08-09] MEDS: ACETAMINOPHEN 325 MG TAB PO PRN ×3 (07:36→22:13)
--- NOTE | 2016-08-09 11:36 | PN ---
Date/Time of Note Date/Time of Note DATE: 08/09/16 TIME: 11:35 Assessment/Plan VTE Prophylaxis VTE Prophylaxis Intervention: SCD's Lines/Catheters IV Catheter Type (from [facility]): Peripheral IV Urinary Cath still in place: No Assessment/Plan Chief Complaint/Hosp Course ASSESSMENT AND PLAN: 46-year-old female with right pelvic pain with large multicystic right adnexal mass suspicious for malignancy. 1. Right flank pain, again secondary to large multicystic right adnexal mass, elevated CA 19-9. - per MANAGER CLIENT SERVICE/ONC recommendations, for surgical intervention in 2 days. - Continue antiemetic medicines and pain control medications as well. - Follow up lab results as well. - Follow up TIME CYCLE OPERATOR recommendations as well. 2. Normocytic anemia, possibly secondary to malignancy. Hemoglobin is presently stable. MCV is borderline low normal. - Continue to monitor for now. Consider iron tablets. 3. Gastrointestinal prophylaxis - PPI. 4. Deep venous thrombosis prophylaxis, SCDs. Problems: Subjective 24 Hr Interval Summary Free Text/Dictation Seen by Electrician Apprentice Onc team, minimal pain now. Exam/Review of Systems Vital Signs Vitals Vital Signs Date Time Temp Pulse Resp B/P Pulse Ox O2 Delivery O2 Flow Rate FiO2 08/09/16 07:16 98.7 67 17 113/67 100 08/08/16 16:38 Room Air Intake and Output 08/08/16 08/08/16 08/09/16 15:00 23:00 07:00 Intake Total 780 ml 1600 ml 1600 ml Balance 780 ml 1600 ml 1600 ml Exam GENERAL: The patient is sitting up in bed, answering questions appropriately. No acute distress. HEENT: Pupils equal, round, reactive to light. Extraocular muscles intact. LUNGS: Clear to auscultation bilaterally. CARDIOVASCULAR: S1, S2 heard. No rubs or gallops. ABDOMEN: Mild tenderness to palpation right flank area, otherwise, no rebound or guarding. Normal bowel sounds. MUSCULOSKELETAL: No lower extremity edema bilaterally. NEUROLOGIC: No focal deficits. Results Result Diagram: 08/09/1640908/09/16409 Results 24 hrs Laboratory Tests Test 08/09/16 04:10 Anion Gap 14 Basophils # 0.0 Basophils % 0.3 Blood Morphology Comment Blood Urea Nitrogen 6 L Calcium Level 8.2 L Carbon Dioxide Level 27 Chloride Level 106 Creatinine 0.65 Eosinophils # 0.2 Eosinophils % 3.1 Glucose Level 89 Hematocrit 28.3 L Hemoglobin 9.4 L Lymphocytes # 1.6 Lymphocytes % 26.6 Mean Corpuscular Hemoglobin 26.5 L Mean Corpuscular Hemoglobin Concent 33.1 Mean Corpuscular Volume 80.0 L Mean Platelet Volume 8.5 Monocytes # 0.3 Monocytes % 5.7 Neutrophils # 3.9 Neutrophils % 64.3 Nucleated Red Blood Cells # 0.0 Nucleated Red Blood Cells % 0.0 Platelet Count 270 Potassium Level 3.6 Red Blood Count 3.54 L Red Cell Distribution Width 13.9 Sodium Level 143 White Blood Count 6.1 Medications Medications Current Medications Hydromorphone HCl 1 mg 1 mg Q3H PRN IM pain; Start 08/07/16 at 04:00 Lactated Ringer's (Lr) 1,000 ml @ 125 mls/hr Q8H IV Last administered on 07:36; Admin Dose 125 MLS/HR; Start 08/07/16 at 04:00 Ondansetron HCl (Zofran Inj) 4 mg Q6H PRN IV NAUSEA AND/OR VOMITING; Start at 08:00 Acetaminophen (Tylenol Tab) 650 mg Q6H PRN PO PAIN LEVEL 1-3 OR FEVER Last administered on 08/09/16 07:36; Admin Dose 650 MG; Start 08/07/16 at 08:00 Morphine Sulfate (morphine) 2 mg Q4H PRN IV SEVERE PAIN LEVEL 7-10; Start 08/07 at 08:00 Pantoprazole (Protonix Tab) 40 mg DAILY@06 PO Last administered on 08/09/16 05 :37; Admin Dose 40 MG; Start 08/09/16 at 06:00 ADAMARIS RODRIGUEZ Aug 09, 2016 11:36
--- NOTE | 2016-08-09 19:13 | PN ---
Date/Time of Note Date/Time of Note DATE: 08/09/16 TIME: 19:09 Assessment/Plan VTE Prophylaxis VTE Prophylaxis Intervention: SCD's Lines/Catheters IV Catheter Type (from Nrs): Peripheral IV Urinary Cath still in place: No Assessment/Plan Chief Complaint/Hosp Course Pelvic mass Problems: Assessment/Plan A- pelvic mass symptomatic awaiting OR time P- Planning procedure Thursday or Thursday and will start bowel prep tomorrow Subjective 24 Hr Interval Summary Free Text/Dictation S- Feels about the same with intermittent increased pain. Moderately tolerates diet but notes increased distension. O- Resp- clear CVS- NSR Abd- slightly firmer and more distended Ext- NT A- pelvic mass symptomatic awaiting OR time P- Planning procedure Thursday or Thursday and will start bowel prep tomorrow Exam/Review of Systems Vital Signs Vitals Vital Signs Date Time Temp Pulse Resp B/P Pulse Ox O2 Delivery O2 Flow Rate FiO2 08/09/16 07:16 98.7 67 17 113/67 100 08/08/16 16:38 Room Air Intake and Output 08/08/16 08/08/16 08/09/16 15:00 23:00 07:00 Intake Total 780 ml 1600 ml 1600 ml Balance 780 ml 1600 ml 1600 ml Results Result Diagram: 08/09/16 0410 08/09/16 0410 Results 24 hrs Laboratory Tests Test 08/09/16 04:10 Anion Gap 14 Basophils # 0.0 Basophils % 0.3 Blood Morphology Comment Blood Urea Nitrogen 6 L Calcium Level 8.2 L Carbon Dioxide Level 27 Chloride Level 106 Creatinine 0.65 Eosinophils # 0.2 Eosinophils % 3.1 Glucose Level 89 Hematocrit 28.3 L Hemoglobin 9.4 L Lymphocytes # 1.6 Lymphocytes % 26.6 Mean Corpuscular Hemoglobin 26.5 L Mean Corpuscular Hemoglobin Concent 33.1 Mean Corpuscular Volume 80.0 L Mean Platelet Volume 8.5 Monocytes # 0.3 Monocytes % 5.7 Neutrophils # 3.9 Neutrophils % 64.3 Nucleated Red Blood Cells # 0.0 Nucleated Red Blood Cells % 0.0 Platelet Count 270 Potassium Level 3.6 Red Blood Count 3.54 L Red Cell Distribution Width 13.9 Sodium Level 143 White Blood Count 6.1 Medications Medications Current Medications Hydromorphone HCl 1 mg 1 mg Q3H PRN IM pain; Start 08/07/16 at 04:00 Lactated Ringer's (Lr) 1,000 ml @ 125 mls/hr Q8H IV Last administered on 16:30; Admin Dose 125 MLS/HR; Start 08/07/16 at 04:00 Ondansetron HCl (Zofran Inj) 4 mg Q6H PRN IV NAUSEA AND/OR VOMITING; Start at 08:00 Acetaminophen (Tylenol Tab) 650 mg Q6H PRN PO PAIN LEVEL 1-3 OR FEVER Last administered on 08/09/16 15:21; Admin Dose 650 MG; Start 08/07/16 at 08:00 Morphine Sulfate (morphine) 2 mg Q4H PRN IV SEVERE PAIN LEVEL 7-10; Start 08/07 at 08:00 Pantoprazole (Protonix Tab) 40 mg DAILY@06 PO Last administered on 08/09/16 05 :37; Admin Dose 40 MG; Start 08/09/16 at 06:00 ANNY FORD MD Aug 09, 2016 19:13
[2016-08-09] MEDS ORDERED: POTASSIUM CHLORIDE 10 MEQ in LACTATED RINGER'S 1,000 ML IV SCH (19:17)
[2016-08-09 20:00] VITALS: BP 132/68; RESP 18
[2016-08-09] MEDS: POTASSIUM CHLORIDE 10 MEQ in LACTATED RINGER'S 1,000 ML IV SCH (20:49)
[2016-08-10 05:14] LABS: POTASSIUM 3.7 mmol/L (3.5-5.1)
[2016-08-10 05:17] LABS: CREATININE 0.6 mg/dl (0.44-1.00)
[2016-08-10 05:18] LABS: CALCIUM 8.2 mg/dl (8.4-10.2)
[2016-08-10 05:29] LABS: BASOPHILS % 0.5 % (0.0-2.0); EOSINOPHILS # 0.2 10^3/ul (0.0-0.5); EOSINOPHILS % 2.6 % (0.0-7.0); HEMATOCRIT 27.4 % (37.0-47.0); LYMPHOCYTES # 1.8 10^3/ul (0.8-2.9); LYMPHOCYTES % 25.4 % (15.0-51.0); MEAN CORPUSCULAR HEMOGLOBIN 26.5 pg (29.0-33.0); MEAN CORPUSCULAR HGB CONC 32.7 g/dl (32.0-37.0); MEAN CORPUSCULAR VOLUME 80.8 fl (82.0-101.0); MEAN PLATELET VOLUME 8.7 fl (7.4-10.4); MONOCYTE # 0.4 10^3/ul (0.3-0.9); MONOCYTES % 6.2 % (0.0-11.0); NEUTROPHIL # 4.7 10^3/ul (1.6-7.5); NEUTROPHILS % 65.3 % (39.0-77.0); PLATELET COUNT 262 10^3/UL (140-440); RED BLOOD COUNT 3.39 10^6/ul (4.20-5.40); RED CELL DISTRIBUTION WIDTH 14.3 % (11.5-14.5); UNCORRECTED WBC 7.2 10^3/ul (4.8-10.8); WHITE BLOOD COUNT 7.2 10^3/ul (4.8-10.8)
[2016-08-10 05:33] LABS: INR 1.03; PROTIME 13.5 Sec (12.2-14.2); PT RATIO 1.1
[2016-08-10 06:07] LABS: CONDITION 1; LH ANALYZER COMMENTS 1
[2016-08-10] MEDS: PANTOPRAZOLE (EC) 40 MG TAB PO SCH (06:09)
[2016-08-10 08:00] VITALS: BP 122/60; PULSE 65; RESP 16
--- NOTE | 2016-08-10 08:22 | RADRPT ---
PROCEDURE: US Lower extremity Venous. CLINICAL INDICATION: Pain and swelling TECHNIQUE: Multiple sonographic images of the bilateral lower extremity deep venous system was obt ained utilizing grayscale, color-flow, compressive sonography and doppler imaging with augmentation. The images were reviewed on a PACS workstation. COMPARISON: None. FINDINGS: There is normal compressibility and flow within the bilateral common femoral, deep femoral, superfic ial femoral and popliteal veins. Normal respiratory variation and augmentation is seen. There is normal color flow and compressibility of bilateral posterior tibial and peroneal veins IMPRESSION: No sonographic evidence for bilateral lower extremity deep venous thrombosis. RPTAT: HH .Joseph Adler MD, MD Date Time Electronically viewed and signed by .Joseph Adler MD, on 08/10/2016 08:21 .W/
--- NOTE | 2016-08-10 10:35 | PN ---
Date/Time of Note Date/Time of Note DATE: 08/10/16 TIME: 10:34 Assessment/Plan VTE Prophylaxis VTE Prophylaxis Intervention: SCD's Lines/Catheters IV Catheter Type (from [facility]): Peripheral IV Urinary Cath still in place: No Assessment/Plan Chief Complaint/Hosp Course ASSESSMENT AND PLAN: 46-year-old female with right pelvic pain with large multicystic right adnexal mass suspicious for malignancy. 1. Right flank pain, again secondary to large multicystic right adnexal mass, elevated CA 19-9. - per PACKAGING SALES REPRESENTATIVE/ONC recommendations, for surgical intervention in 1 day. - Continue antiemetic medicines and pain control medications as well. - Follow up lab results as well. - Follow up PUBLISHING AGENT recommendations as well. 2. Normocytic anemia, possibly secondary to malignancy. Hemoglobin is presently stable. MCV is borderline low normal. - Continue to monitor for now. Consider iron tablets. 3. Gastrointestinal prophylaxis - PPI. 4. Deep venous thrombosis prophylaxis, SCDs. Problems: Subjective 24 Hr Interval Summary Free Text/Dictation Seen by Shipping Assistant Onc team, no acute events overnight. Exam/Review of Systems Vital Signs Vitals Vital Signs Date Time Temp Pulse Resp B/P Pulse Ox O2 Delivery O2 Flow Rate FiO2 08/09/16 20:00 98.6 75 18 132/68 98 08/08/16 16:38 Room Air Intake and Output 08/09/16 08/09/16 08/10/16 15:00 23:00 07:00 Intake Total 250 ml 2610 ml 480 ml Output Total 1250 ml Balance 250 ml 2610 ml -770 ml Exam GENERAL: The patient is sitting up in bed, answering questions appropriately. No acute distress. HEENT: Pupils equal, round, reactive to light. Extraocular muscles intact. LUNGS: Clear to auscultation bilaterally. CARDIOVASCULAR: S1, S2 heard. No rubs or gallops. ABDOMEN: Mild tenderness to palpation right flank area, otherwise, no rebound or guarding. Normal bowel sounds. MUSCULOSKELETAL: No lower extremity edema bilaterally. NEUROLOGIC: No focal deficits. Results Result Diagram: 08/10/16 0416 08/10/16 0416 Results 24 hrs Laboratory Tests Test 08/10/16 04:16 Anion Gap 15 Basophils # 0.0 Basophils % 0.5 Blood Morphology Comment Blood Urea Nitrogen 7 Calcium Level 8.2 L Carbon Dioxide Level 27 Chloride Level 104 Creatinine 0.60 Eosinophils # 0.2 Eosinophils % 2.6 Glucose Level 90 Hematocrit 27.4 L Hemoglobin 9.0 L INR International Normalized Ratio 1.03 Lymphocytes # 1.8 Lymphocytes % 25.4 Mean Corpuscular Hemoglobin 26.5 L Mean Corpuscular Hemoglobin Concent 32.7 Mean Corpuscular Volume 80.8 L Mean Platelet Volume 8.7 Monocytes # 0.4 Monocytes % 6.2 Neutrophils # 4.7 Neutrophils % 65.3 Nucleated Red Blood Cells # 0.0 Nucleated Red Blood Cells % 0.0 Platelet Count 262 Potassium Level 3.7 Prothrombin Time 13.5 Prothrombin Time Ratio 1.1 Red Blood Count 3.39 L Red Cell Distribution Width 14.3 Sodium Level 142 White Blood Count 7.2 Medications Medications Current Medications Hydromorphone HCl (Dilaudid) 1 mg Q3H PRN IM pain; Start 08/07/16 at 04:00 Ondansetron HCl (Zofran Inj) 4 mg Q6H PRN IV NAUSEA AND/OR VOMITING; Start at 08:00 Acetaminophen (Tylenol Tab) 650 mg Q6H PRN PO PAIN LEVEL 1-3 OR FEVER Last administered on 08/09/16 22:13; Admin Dose 650 MG; Start 08/07/16 at 08:00 Morphine Sulfate (morphine) 2 mg Q4H PRN IV SEVERE PAIN LEVEL 7-10; Start 08/07 at 08:00 Pantoprazole (Protonix Tab) 40 mg DAILY@06 PO Last administered on 08/10/16 06 :09; Admin Dose 40 MG; Start 08/09/16 at 06:00 Polyethylene Glycol/ Electrolytes 4000 ml 4,000 ml ONCE ONCE PO ; Start at 12:30; Stop 08/10/16 at 12:31 Potassium Chloride/Lactated Ringer's (KCl/Lr) 1,005 ml @ 80 mls/hr [id number] IV Last administered on 08/09/16 20:49; Admin Dose 80 MLS/HR; Start 08/09/16 at 19 :30 ADAMARIS RODRIGUEZ Aug 10, 2016 10:35
[2016-08-10] MEDS: POTASSIUM CHLORIDE 10 MEQ in LACTATED RINGER'S 1,000 ML IV SCH ×2 (11:14→20:38)
[2016-08-10] MEDS ORDERED: PEG/ELECTROLYTES 4L BTL PO ONE (12:30)
--- NOTE | 2016-08-10 19:42 | PN ---
Date/Time of Note Date/Time of Note DATE: 08/10/16 TIME: 19:36 Assessment/Plan VTE Prophylaxis VTE Prophylaxis Intervention: SCD's Lines/Catheters IV Catheter Type (from Nrs): Peripheral IV Urinary Cath still in place: No Assessment/Plan Chief Complaint/Hosp Course Pelvic mass Problems: Assessment/Plan A- pelvic mass symptomatic awaiting OR time P- Planning procedure Thursday and will continue bowel prep tomorrow Subjective 24 Hr Interval Summary Free Text/Dictation S- Marginally tolerating bowel prep and some increase in diet O- Resp- clear CVS- NSR Abd- slightly firmer and more distended Ext- NT A- pelvic mass symptomatic awaiting OR time P- Planning procedure Thursday and will continue bowel prep tomorrow Exam/Review of Systems Vital Signs Vitals Vital Signs Date Time Temp Pulse Resp B/P Pulse Ox O2 Delivery O2 Flow Rate FiO2 08/10/16 08:00 97.9 65 16 122/60 98 Room Air Intake and Output 08/09/16 08/09/16 08/10/16 15:00 23:00 07:00 Intake Total 250 ml 2610 ml 480 ml Output Total 1250 ml Balance 250 ml 2610 ml -770 ml Results Result Diagram: 08/10/16 0416 08/10/16 0416 Results 24 hrs Laboratory Tests Test 08/10/16 04:16 Anion Gap 15 Basophils # 0.0 Basophils % 0.5 Blood Morphology Comment Blood Urea Nitrogen 7 Calcium Level 8.2 L Carbon Dioxide Level 27 Chloride Level 104 Creatinine 0.60 Eosinophils # 0.2 Eosinophils % 2.6 Glucose Level 90 Hematocrit 27.4 L Hemoglobin 9.0 L INR International Normalized Ratio 1.03 Lymphocytes # 1.8 Lymphocytes % 25.4 Mean Corpuscular Hemoglobin 26.5 L Mean Corpuscular Hemoglobin Concent 32.7 Mean Corpuscular Volume 80.8 L Mean Platelet Volume 8.7 Monocytes # 0.4 Monocytes % 6.2 Neutrophils # 4.7 Neutrophils % 65.3 Nucleated Red Blood Cells # 0.0 Nucleated Red Blood Cells % 0.0 Platelet Count 262 Potassium Level 3.7 Prothrombin Time 13.5 Prothrombin Time Ratio 1.1 Red Blood Count 3.39 L Red Cell Distribution Width 14.3 Sodium Level 142 White Blood Count 7.2 Medications Medications Current Medications Hydromorphone HCl (Dilaudid) 1 mg Q3H PRN IM pain; Start 08/07/16 at 04:00 Ondansetron HCl (Zofran Inj) 4 mg Q6H PRN IV NAUSEA AND/OR VOMITING; Start at 08:00 Acetaminophen (Tylenol Tab) 650 mg Q6H PRN PO PAIN LEVEL 1-3 OR FEVER Last administered on 08/09/16 22:13; Admin Dose 650 MG; Start 08/07/16 at 08:00 Morphine Sulfate (morphine) 2 mg Q4H PRN IV SEVERE PAIN LEVEL 7-10; Start 08/07 at 08:00 Pantoprazole 40 mg 40 mg DAILY@06 PO Last administered on 08/10/16 06:09; Admin Dose 40 MG; Start 08/09/16 at 06:00 Potassium Chloride/Lactated Ringer's (KCl/Lr) 1,005 ml @ 80 mls/hr [id number] IV Last administered on 08/10/16 11:14; Admin Dose 80 MLS/HR; Start 08/09/16 at 19 :30 ANNY FORD MD Aug 10, 2016 19:42
[2016-08-10 21:18] VITALS: BP 134/74; RESP 19
[2016-08-11] MEDS ORDERED: ACETAMINOPHEN 325 MG TAB PO ONE
[2016-08-11] MEDS ORDERED: DIPHENHYDRAMINE 25 MG CAP PO ONE
[2016-08-11] MEDS ORDERED: FUROSEMIDE 20 MG INJ IV ONE (04:00)
[2016-08-11] MEDS: PANTOPRAZOLE (EC) 40 MG TAB PO SCH (05:28)
[2016-08-11] MEDS: POTASSIUM CHLORIDE 10 MEQ in LACTATED RINGER'S 1,000 ML IV SCH ×2 (05:29→17:55)
[2016-08-11] MEDS ORDERED: FERR240T9 PO (08:44)
[2016-08-11] MEDS ORDERED: TOLT2CAP6 PO (08:44)
[2016-08-11] MEDS ORDERED: MAGN2400 PO (08:44)
[2016-08-11] MEDS ORDERED: PHEN16.228 PO (08:44)
[2016-08-11] MEDS ORDERED: DOCU-144 PO (08:44)
[2016-08-11 08:56] VITALS: BP 126/65; RESP 18
[2016-08-11 10:13] LABS: BASOPHILS % 0.5 % (0.0-2.0); EOSINOPHILS # 0.2 10^3/ul (0.0-0.5); EOSINOPHILS % 2.7 % (0.0-7.0); HEMATOCRIT 33.5 % (37.0-47.0); HEMOGLOBIN 11.3 g/dl (12.0-16.0); LYMPHOCYTES # 1.2 10^3/ul (0.8-2.9); LYMPHOCYTES % 19.9 % (15.0-51.0); MEAN CORPUSCULAR HEMOGLOBIN 27.4 pg (29.0-33.0); MEAN CORPUSCULAR HGB CONC 33.9 g/dl (32.0-37.0); MONOCYTE # 0.3 10^3/ul (0.3-0.9); MONOCYTES % 5.5 % (0.0-11.0); NEUTROPHIL # 4.3 10^3/ul (1.6-7.5); NEUTROPHILS % 71.4 % (39.0-77.0); PLATELET COUNT 286 10^3/UL (140-440); RED BLOOD COUNT 4.13 10^6/ul (4.20-5.40); RED CELL DISTRIBUTION WIDTH 13.9 % (11.5-14.5); UNCORRECTED WBC 6.1 10^3/ul (4.8-10.8); WHITE BLOOD COUNT 6.1 10^3/ul (4.8-10.8)
[2016-08-11 10:18] LABS: CONDITION 1; LH ANALYZER COMMENTS 1
[2016-08-11 10:34] LABS: POTASSIUM 3.7 mmol/L (3.5-5.1)
[2016-08-11 10:36] LABS: CREATININE 0.62 mg/dl (0.44-1.00)
[2016-08-11 10:37] LABS: CALCIUM 8.8 mg/dl (8.4-10.2)
--- NOTE | 2016-08-11 12:08 | PN ---
Date/Time of Note Date/Time of Note DATE: 08/11/16 TIME: 12:04 Assessment/Plan VTE Prophylaxis VTE Prophylaxis Intervention: SCD's Lines/Catheters IV Catheter Type (from Nrs): Peripheral IV Urinary Cath still in place: No Assessment/Plan Assessment/Plan 46-year-old female with right pelvic pain with large multicystic right adnexal mass suspicious for malignancy. 1. Symptomatic large multicystic right adnexal mass concerning for malignancy with elevated CA 19-9. 2. Hypochromic Microcytic anemia: r/o iron deficiency 3. S/p Recent Tummy Tuck surgery about 7 weeks ago 4. 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 Continue home Lovastatin PROPHYLAXIS: PPI / SCDs Subjective 24 Hr Interval Summary Free Text/Dictation Patient seen and examined. C/o R adnexal tenderness Exam/Review of Systems Vital Signs Vitals Vital Signs Date Time Temp Pulse Resp B/P Pulse Ox O2 Delivery O2 Flow Rate FiO2 08/11/16 08:56 98.2 65 18 126/65 98 08/10/16 08:00 Room Air Intake and Output 08/10/16 08/10/16 08/11/16 15:00 23:00 07:00 Intake Total 1005 ml 1680 ml 1630 ml Output Total 2400 ml Balance 1005 ml -720 ml 1630 ml Exam Constitutional: alert, oriented Head: atraumatic, normocephalic Eyes: PERRL Neck: supple Respiratory: clear to auscultation Cardiovascular: nl pulses, regular rate and rhythm Gastrointestinal: bowel sounds, soft, surgical scars (recent surgical scar Pfannestiel and umbilical scars healing well with no oozing or redness) Results Result Diagram: 08/11/16 0950 08/11/16 0950 Results 24 hrs Laboratory Tests Test 08/11/16 09:50 Anion Gap 17 H Basophils # 0.0 Basophils % 0.5 Blood Morphology Comment Blood Urea Nitrogen 5 L Calcium Level 8.8 Carbon Dioxide Level 28 Chloride Level 100 Creatinine 0.62 Eosinophils # 0.2 Eosinophils % 2.7 Glucose Level 112 Hematocrit 33.5 #L Hemoglobin 11.3 #L Lymphocytes # 1.2 Lymphocytes % 19.9 Mean Corpuscular Hemoglobin 27.4 L Mean Corpuscular Hemoglobin Concent 33.9 Mean Corpuscular Volume 81.0 L Mean Platelet Volume 8.0 Monocytes # 0.3 Monocytes % 5.5 Neutrophils # 4.3 Neutrophils % 71.4 Nucleated Red Blood Cells # 0.0 Nucleated Red Blood Cells % 0.0 Platelet Count 286 Potassium Level 3.7 Red Blood Count 4.13 #L Red Cell Distribution Width 13.9 Sodium Level 141 White Blood Count 6.1 Medications Medications Current Medications Hydromorphone HCl (Dilaudid) 1 mg Q3H PRN IM pain; Start 08/07/16 at 04:00 Ondansetron HCl (Zofran Inj) 4 mg Q6H PRN IV NAUSEA AND/OR VOMITING; Start at 08:00 Acetaminophen (Tylenol Tab) 650 mg Q6H PRN PO PAIN LEVEL 1-3 OR FEVER Last administered on 08/09/16 22:13; Admin Dose 650 MG; Start 08/07/16 at 08:00 Morphine Sulfate (morphine) 2 mg Q4H PRN IV SEVERE PAIN LEVEL 7-10; Start 08/07 at 08:00 Pantoprazole 40 mg 40 mg DAILY@06 PO Last administered on 08/11/16 05:28; Admin Dose 40 MG; Start 08/09/16 at 06:00 Potassium Chloride/Lactated Ringer's (KCl/Lr) 1,005 ml @ 80 mls/hr [id number] IV Last administered on 08/11/16 05:29; Admin Dose 80 MLS/HR; Start 08/09/16 at 19 :30 THONY ARGUETA Aug 11, 2016 12:08
[2016-08-11] MEDS: ACETAMINOPHEN 325 MG TAB PO PRN ×2 (14:53→20:59)
[2016-08-11 20:18] VITALS: BP 150/79; RESP 20
[2016-08-11] MEDS: ATORVASTATIN 10 MG TAB PO SCH (20:59)
[2016-08-11] MEDS: DOCUSATE SODIUM 100 MG CAP PO SCH (20:59)
[2016-08-12] VITALS (23 sets, daily range): BP systolic 116–139; BP diastolic 61–88; PULSE 68–96; RESP 12–20
[2016-08-12 05:46] LABS: POTASSIUM 3.8 mmol/L (3.5-5.1)
[2016-08-12 05:49] LABS: CREATININE 0.61 mg/dl (0.44-1.00)
[2016-08-12 05:50] LABS: CALCIUM 8.7 mg/dl (8.4-10.2)
[2016-08-12] MEDS: PANTOPRAZOLE (EC) 40 MG TAB PO SCH (05:53)
[2016-08-12] MEDS: POTASSIUM CHLORIDE 10 MEQ in LACTATED RINGER'S 1,000 ML IV SCH (06:27)
[2016-08-12 06:42] LABS: BASOPHILS % 0.5 % (0.0-2.0); EOSINOPHILS # 0.2 10^3/ul (0.0-0.5); EOSINOPHILS % 3.1 % (0.0-7.0); HEMATOCRIT 33.6 % (37.0-47.0); HEMOGLOBIN 11.3 g/dl (12.0-16.0); LYMPHOCYTES # 1.6 10^3/ul (0.8-2.9); LYMPHOCYTES % 24.2 % (15.0-51.0); MEAN CORPUSCULAR HEMOGLOBIN 27.3 pg (29.0-33.0); MEAN CORPUSCULAR HGB CONC 33.7 g/dl (32.0-37.0); MEAN PLATELET VOLUME 8.7 fl (7.4-10.4); MONOCYTE # 0.4 10^3/ul (0.3-0.9); MONOCYTES % 6.8 % (0.0-11.0); NEUTROPHIL # 4.2 10^3/ul (1.6-7.5); NEUTROPHILS % 65.4 % (39.0-77.0); PLATELET COUNT 282 10^3/UL (140-440); RED BLOOD COUNT 4.15 10^6/ul (4.20-5.40); RED CELL DISTRIBUTION WIDTH 14.3 % (11.5-14.5); UNCORRECTED WBC 6.4 10^3/ul (4.8-10.8); WHITE BLOOD COUNT 6.4 10^3/ul (4.8-10.8)
[2016-08-12 07:11] LABS: CONDITION 1; LH ANALYZER COMMENTS 1
[2016-08-12] MEDS: DOCUSATE SODIUM 100 MG CAP PO SCH ×2 (07:53→21:45)
--- NOTE | 2016-08-12 13:02 | PN ---
Date/Time of Note Date/Time of Note DATE: 08/12/16 TIME: 12:52 Assessment/Plan VTE Prophylaxis VTE Prophylaxis Intervention: SCD's Lines/Catheters IV Catheter Type (from Nrs): Peripheral IV Urinary Cath still in place: No Assessment/Plan Assessment/Plan 46-year-old female with right pelvic pain with large multicystic right adnexal mass suspicious for malignancy. 1. Symptomatic large multicystic right adnexal mass concerning for malignancy with elevated CA 19-9. 2. Hypochromic Microcytic anemia: r/o iron deficiency 3. S/p Recent Tummy Tuck surgery about 7 weeks ago 4. 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 Continue home Lovastatin PROPHYLAXIS: PPI / SCDs Subjective 24 Hr Interval Summary Free Text/Dictation Patient seen and examined. awaiting Sx at about 4 pm today, no new c/o still with r adnexal discomfort, controlled by meds Exam/Review of Systems Vital Signs Vitals Vital Signs Date Time Temp Pulse Resp B/P Pulse Ox O2 Delivery O2 Flow Rate FiO2 08/12/16 08:23 98.6 69 19 119/67 97 08/10/16 08:00 Room Air Intake and Output 08/11/16 08/11/16 08/12/16 15:00 23:00 07:00 Intake Total 1040 ml 1460 ml Balance 1040 ml 1460 ml Exam Constitutional: alert, oriented Head: atraumatic, normocephalic Eyes: PERRL Neck: supple Respiratory: clear to auscultation Cardiovascular: nl pulses, regular rate and rhythm Gastrointestinal: bowel sounds, soft, surgical scars (recent surgical scar Pfannestiel and umbilical scars healing well with no oozing or redness) Results Result Diagram: 08/12/16 0430 08/12/16 0430 Results 24 hrs Laboratory Tests Test 08/12/16 04:30 Anion Gap 13 Basophils # 0.0 Basophils % 0.5 Blood Morphology Comment Blood Urea Nitrogen 5 L Calcium Level 8.7 Carbon Dioxide Level 28 Chloride Level 105 Creatinine 0.61 Eosinophils # 0.2 Eosinophils % 3.1 Glucose Level 89 Hematocrit 33.6 L Hemoglobin 11.3 L Lymphocytes # 1.6 Lymphocytes % 24.2 Mean Corpuscular Hemoglobin 27.3 L Mean Corpuscular Hemoglobin Concent 33.7 Mean Corpuscular Volume 81.0 L Mean Platelet Volume 8.7 Monocytes # 0.4 Monocytes % 6.8 Neutrophils # 4.2 Neutrophils % 65.4 Nucleated Red Blood Cells # 0.0 Nucleated Red Blood Cells % 0.0 Platelet Count 282 Potassium Level 3.8 Red Blood Count 4.15 L Red Cell Distribution Width 14.3 Sodium Level 142 White Blood Count 6.4 Medications Medications Current Medications Hydromorphone HCl (Dilaudid) 1 mg Q3H PRN IM pain; Start 08/07/16 at 04:00 Ondansetron HCl (Zofran Inj) 4 mg Q6H PRN IV NAUSEA AND/OR VOMITING; Start at 08:00 Acetaminophen (Tylenol Tab) 650 mg Q6H PRN PO PAIN LEVEL 1-3 OR FEVER Last administered on 08/11/16 20:59; Admin Dose 650 MG; Start 08/07/16 at 08:00 Morphine Sulfate (morphine) 2 mg Q4H PRN IV SEVERE PAIN LEVEL 7-10; Start 08/07 at 08:00 Pantoprazole 40 mg 40 mg DAILY@06 PO Last administered on 08/12/16 05:53; Admin Dose 40 MG; Start 08/09/16 at 06:00 Potassium Chloride/Lactated Ringer's (KCl/Lr) 1,005 ml @ 80 mls/hr [id number] IV Last administered on 08/12/16 06:27; Admin Dose 80 MLS/HR; Start 08/09/16 at 19 :30 Docusate Sodium (Colace) 100 mg BID PO Last administered on 08/11/16 20:59; Admin Dose 100 MG; Start 08/11/16 at 21:00 Atorvastatin Calcium (Lipitor) 10 mg DAILY@21 PO Last administered on 20:59; Admin Dose 10 MG; Start 08/11/16 at 21:00 THONY ARGUETA Aug 12, 2016 13:02
--- NOTE | 2016-08-12 15:27 | HPN ---
Date/Time of Note Date/Time of Note DATE: 08/12/16 TIME: 15:27 Interval H&P Admission Note Pt. seen H&P reviewed: No system changes ANNY FORD MD Aug 12, 2016 15:27
[2016-08-12] MEDS ORDERED: METHYLENE BLUE 10 MG/ML VIAL ONE (16:04)
[2016-08-12] MEDS ORDERED: PROPOFOL 20 ML ONE (16:14)
[2016-08-12] MEDS ORDERED: LIDOCAINE 2% (SDV) 5 ML INJ ONE (16:14)
[2016-08-12] MEDS ORDERED: morphine SULFATE/PF (10 MG/10 ML) INJ ONE (16:15)
[2016-08-12] MEDS ORDERED: FENTAnyl 50 MCG/ML VIAL ONE ×2 (16:15→18:35)
[2016-08-12] MEDS ORDERED: MIDAZOLAM 1 MG/ML 2 ML INJ ONE (16:15)
[2016-08-12] MEDS ORDERED: SUCCINYLCHOLINE CHLORIDE 100 MG/5 ML SYG IV ONE (16:17)
[2016-08-12] MEDS ORDERED: CEFAZOLIN 1 GM INJ ONE (16:21)
[2016-08-12] MEDS ORDERED: ROCURONIUM 50 MG INJ ONE ×2 (16:22→18:23)
[2016-08-12] MEDS ORDERED: ONDANSETRON 4 MG INJ ONE ×2 (17:16→19:40)
[2016-08-12] MEDS ORDERED: METOCLOPRAMIDE 10 MG INJ ONE (17:16)
[2016-08-12] MEDS ORDERED: DEXAMETHASONE 4 MG/ML 1 ML INJ ONE (17:16)
[2016-08-12] MEDS ORDERED: DIPHENHYDRAMINE 50 MG INJ ONE (18:17)
[2016-08-12] MEDS ORDERED: NALBUPHINE HCL (10 MG/1 ML) INJ IV PRN (18:30)
[2016-08-12] MEDS ORDERED: HYDROmorphONE (0.2 MG/ML) 10ML SYG IV PRN ×2 (18:30)
[2016-08-12] MEDS ORDERED: DIPHENHYDRAMINE 50 MG INJ IV PRN ×2 (18:30)
[2016-08-12] MEDS ORDERED: FENTAnyl 50 MCG/ML VIAL IV PRN (18:30)
[2016-08-12] MEDS ORDERED: ONDANSETRON 4 MG INJ IV PRN ×3 (18:30→21:00)
[2016-08-12] MEDS ORDERED: TRIMETHOBENZAMIDE 100 MG/ML VIAL IM PRN (18:30)
[2016-08-12] MEDS ORDERED: MEPERIDINE 25 MG INJ IV PRN (18:30)
[2016-08-12] MEDS ORDERED: hydrALAzine 20 MG INJ IV PRN (18:30)
[2016-08-12] MEDS ORDERED: HYDROmorphONE 1 MG/ML SYG IV PRN ×2 (18:30)
[2016-08-12] MEDS ORDERED: LABETALOL HCL 20MG INJ IV PRN (18:30)
[2016-08-12] MEDS ORDERED: PROCHLORPERAZINE 10 MG INJ IV PRN (18:30)
[2016-08-12] MEDS ORDERED: NALOXONE (0.4 MG/ML) INJ IV PRN (18:30)
[2016-08-12] MEDS ORDERED: METOPROLOL 5 MG INJ ONE (18:36)
[2016-08-12] MEDS ORDERED: THROMBIN 5000 UNIT VIAL ONE (18:51)
[2016-08-12] MEDS ORDERED: NEOSTIGMINE 3 MG/3 ML SYRINGE ONE (19:35)
[2016-08-12] MEDS ORDERED: GLYCOPYRROLATE 0.4 MG INJ ONE (19:35)
[2016-08-12] MEDS ORDERED: morphine 2 MG INJ IV PRN (21:00)
[2016-08-12] MEDS: ATORVASTATIN 10 MG TAB PO SCH (21:45)
[2016-08-12] MEDS: D5-LR + KCL 20 MEQ 1,000 ML IV SCH (22:00)
[2016-08-12] MEDS: CEFAZOLIN 1 GM/50 ML (PMX) 50 ML IVPB SCH (22:21)
[2016-08-12 23:20] LABS: ADD UMIC YES; URINE BILIRUBIN (Dip) NEGATIVE (NEGATIVE); URINE BLOOD (Dip) TRACE (NEGATIVE); URINE COLOR LT. YELLOW (YELLOW); URINE GLUCOSE (Dip) NEGATIVE (NEGATIVE); URINE KETONES (Dip) 3+ (NEGATIVE); URINE LEUKOCYTE ESTERASE (Dip) NEGATIVE (NEGATIVE); URINE NITRITE (Dip) NEGATIVE (NEGATIVE); URINE TOTAL PROTEIN (Dip) NEGATIVE (NEGATIVE); URINE UROBILINOGEN (Dip) 0.2 E.U./dL (0.1-1.0)
[2016-08-12 23:33] LABS: BACTERIA,URINE RARE; SQUAMOUS EPITHELIAL CELL,UR FEW
[2016-08-13] VITALS: BP 115/60; PULSE 73; RESP 16
[2016-08-13 01:00] VITALS: BP 116/58; PULSE 70; RESP 16
[2016-08-13] MEDS: D5-LR + KCL 20 MEQ 1,000 ML IV SCH ×2 (04:08→18:00)
[2016-08-13 05:34] LABS: INR 1.03; POTASSIUM 4.7 mmol/L (3.5-5.1); PROTIME 13.5 Sec (12.2-14.2); PT RATIO 1.1
[2016-08-13 05:36] LABS: IRON 81 ug/dl (35-150)
[2016-08-13 05:37] LABS: BASOPHILS % 0.1 % (0.0-2.0); CREATININE 0.61 mg/dl (0.44-1.00); HEMOGLOBIN 11.1 g/dl (12.0-16.0); LYMPHOCYTES # 0.5 10^3/ul (0.8-2.9); LYMPHOCYTES % 4.4 % (15.0-51.0); MEAN CORPUSCULAR HEMOGLOBIN 27.3 pg (29.0-33.0); MEAN CORPUSCULAR HGB CONC 33.7 g/dl (32.0-37.0); MEAN CORPUSCULAR VOLUME 80.8 fl (82.0-101.0); MEAN PLATELET VOLUME 8.5 fl (7.4-10.4); MONOCYTE # 0.3 10^3/ul (0.3-0.9); MONOCYTES % 3.2 % (0.0-11.0); NEUTROPHILS % 92.3 % (39.0-77.0); PLATELET COUNT 284 10^3/UL (140-440); RED BLOOD COUNT 4.08 10^6/ul (4.20-5.40); RED CELL DISTRIBUTION WIDTH 14.3 % (11.5-14.5); UNCORRECTED WBC 10.8 10^3/ul (4.8-10.8); WHITE BLOOD COUNT 10.8 10^3/ul (4.8-10.8)
[2016-08-13 05:38] LABS: CALCIUM 8.9 mg/dl (8.4-10.2)
[2016-08-13 05:43] LABS: CONDITION 1; LH ANALYZER COMMENTS 1
[2016-08-13 05:45] LABS: TOTAL IRON BINDING CAPACITY 305 ug/dl (241-421)
[2016-08-13] MEDS: PANTOPRAZOLE (EC) 40 MG TAB PO SCH (05:54)
[2016-08-13] MEDS: CEFAZOLIN 1 GM/50 ML (PMX) 50 ML IVPB SCH ×3 (05:54→21:49)
[2016-08-13 08:01] VITALS: BP 99/55; RESP 20
[2016-08-13] MEDS: DOCUSATE SODIUM 100 MG CAP PO SCH ×2 (08:43→20:10)
[2016-08-13] MEDS: ACETAMINOPHEN 325 MG TAB PO PRN (10:45)
--- NOTE | 2016-08-13 12:11 | PN ---
Date/Time of Note Date/Time of Note DATE: 08/13/16 TIME: 12:11 Assessment/Plan VTE Prophylaxis VTE Prophylaxis Intervention: SCD's Lines/Catheters IV Catheter Type (from Nrs): Peripheral IV Urinary Cath still in place: No Assessment/Plan Assessment/Plan 46-year-old female with right pelvic pain with large multicystic right adnexal mass suspicious for malignancy. 1. Symptomatic large multicystic right adnexal mass concerning for malignancy with elevated CA 19-9. * s/p Laparoscopic Unilateral salpingo-oophorectomy 08/12/16 2. Hypochromic Microcytic anemia: r/o iron deficiency 3. S/p Recent Tummy Tuck surgery about 7 weeks ago 4. Dyslipidemia PLAN: Continue Post op care , PRN pain control/ antiemetics/ antipyretics/ supportive care Continue home Lovastatin F/u Research Anthropologist surg recs. Subjective 24 Hr Interval Summary Free Text/Dictation Patient seen and examined. having mild post op pain Exam/Review of Systems Vital Signs Vitals Vital Signs Date Time Temp Pulse Resp B/P Pulse Ox O2 Delivery O2 Flow Rate FiO2 08/13/16 08:01 98.7 70 20 99/55 97 08/13/16 01:00 Room Air Intake and Output 08/12/16 08/12/16 08/13/16 14:59 22:59 06:59 Intake Total 0 ml 770 ml 1300 ml Output Total 800 ml 600 ml Balance -800 ml 770 ml 700 ml Exam Constitutional: alert, oriented Eyes: PERRL ENMT: mucosa pink and moist Respiratory: clear to auscultation Cardiovascular: regular rate and rhythm Gastrointestinal: bowel sounds, distended, soft, tender Extremities: No edema Results Result Diagram: 08/13/16 0430 08/13/16 0430 Results 24 hrs Laboratory Tests Test 08/12/16 22:50 08/13/16 04:30 Urine Bacteria RARE Urine Bilirubin NEGATIVE Urine Clarity CLEAR Urine Color LT. YELLOW Urine Glucose NEGATIVE Urine Hemoglobin TRACE Urine Ketones 3+ H Urine Leukocyte Esterase NEGATIVE Urine Microscopic RBC 2-5 Urine Microscopic WBC 0-2 Urine Nitrite NEGATIVE Urine Specific [place] 1.020 Urine Squamous Epithelial Cells FEW Urine Total Protein NEGATIVE Urine Urobilinogen 0.2 E.U./dL Urine pH 6.5 Anion Gap 18 H Basophils # 0.0 Basophils % 0.1 Blood Morphology Comment Blood Urea Nitrogen 8 Calcium Level 8.9 Carbon Dioxide Level 26 Chloride Level 101 Creatinine 0.61 Eosinophils # 0.0 Eosinophils % 0.0 Glucose Level 120 Hematocrit 33.0 L Hemoglobin 11.1 L INR International Normalized Ratio 1.03 Iron Level 81 Lymphocytes # 0.5 L Lymphocytes % 4.4 L Mean Corpuscular Hemoglobin 27.3 L Mean Corpuscular Hemoglobin Concent 33.7 Mean Corpuscular Volume 80.8 L Mean Platelet Volume 8.5 Monocytes # 0.3 Monocytes % 3.2 Neutrophils # 10.0 H Neutrophils % 92.3 H Nucleated Red Blood Cells # 0.0 Nucleated Red Blood Cells % 0.0 Percent Iron Saturation 27 Platelet Count 284 Potassium Level 4.7 Prothrombin Time 13.5 Prothrombin Time Ratio 1.1 Red Blood Count 4.08 L Red Cell Distribution Width 14.3 Sodium Level 140 Total Iron Binding Capacity 305 White Blood Count 10.8 # Medications Medications Current Medications Hydromorphone HCl (Dilaudid) 1 mg Q3H PRN IM pain; Start 08/07/16 at 04:00 Acetaminophen (Tylenol Tab) 650 mg Q6H PRN PO PAIN LEVEL 1-3 OR FEVER Last administered on 08/13/16 10:45; Admin Dose 650 MG; Start 08/07/16 at 08:00 Pantoprazole (Protonix Tab) 40 mg DAILY@06 PO Last administered on 08/13/16 05 :54; Admin Dose 40 MG; Start 08/09/16 at 06:00 Docusate Sodium (Colace) 100 mg BID PO Last administered on 08/13/16 08:43; Admin Dose 100 MG; Start 08/11/16 at 21:00 Atorvastatin Calcium (Lipitor) 10 mg DAILY@21 PO Last administered on 21:45; Admin Dose 10 MG; Start 08/11/16 at 21:00 Hydromorphone HCl (Dilaudid) 0.2 mg Q2H PRN IV PAIN LEVEL 1-5; Start 08/12/16 at 18:30; Stop 08/13/16 at 16:46 Hydromorphone HCl (Dilaudid) 0.4 mg Q2H PRN IV PAIN LEVEL 6-10; Start 08/12/16 at 18:30; Stop 08/13/16 at 16:46 Diphenhydramine HCl (Benadryl) 25 mg Q4H PRN IV PRURITUS; Start 08/12/16 at 18: 30; Stop 08/13/16 at 16:46 Nalbuphine HCl (Nubain) 10 mg Q4H PRN IV PRURITUS; Start 08/12/16 at 18:30; Stop 08/13/16 at 16:46 Ondansetron HCl (Zofran Inj) 4 mg Q6H PRN IV NAUSEA AND/OR VOMITING; Start at 18:30; Stop 08/13/16 at 16:46 Trimethobenzamide HCl (Tigan) 200 mg Q6H PRN IM NAUSEA AND/OR VOMITING; Start 08/12/16 at 18:30; Stop 08/13/16 at 16:46 Naloxone HCl 0.2 mg 0.2 mg Q2M PRN IV FOR RESP RATE 8 OR LESS; Start 08/12/16 at 18:30; Stop 08/13/16 at 16:46 Potassium Cl/ Dextrose/Lact Ringer's (D5-Lr + KCl 20 Meq) 1,000 ml @ 100 mls/ hr Q10H IV Last administered on 08/13/16 04:08; Admin Dose 100 MLS/HR; Start 08/12/16 at 22:00 Ondansetron HCl (Zofran Inj) 4 mg Q6H PRN IV NAUSEA AND/OR VOMITING; Start at 21:00 Morphine Sulfate (morphine) 2 mg Q3H PRN IV PAIN; Start 08/12/16 at 21:00 Tramadol HCl 50 mg 50 mg Q6H PRN PO PAIN; Start 08/12/16 at 21:00 Cefazolin Sodium (Ancef 1 Gm/50 ml (Pmx)) 50 ml @ 100 mls/hr Q8 IVPB Last administered on 08/13/16 05:54; Admin Dose 100 MLS/HR; Start 08/12/16 at 22:00 ; Stop 08/14/16 at 21:59 THONY ARGUETA Aug 13, 2016 12:11
[2016-08-13] MEDS: traMADol 50 MG TAB PO PRN ×2 (14:20→20:10)
[2016-08-13 19:00] VITALS: BP 122/58; RESP 18
[2016-08-13] MEDS: ATORVASTATIN 10 MG TAB PO SCH (20:10)
--- NOTE | 2016-08-13 20:14 | OPR ---
Date/Time of Note Date/Time of Note DATE: 08/13/16 TIME: 20:13 Operative Report Free Text/Dictation 3 OPERATIVE REPORT [facility] Name: Bethany Lucas Medical Date: 08/12/16 Preoperative Diagnosis: 1- Right adnexal mass 2- Pelvic pain 3- Elevated CA-19-9 Postoperative Diagnosis: 1- Right benign neoplasm; pathology pending 2- Right ureteral distortion 3- Extensive pelvic adhesions 4- Morbid obesity Procedures: 1- Laparoscopy 2- Lysis of adhesions 3- Unilateral ureteral dissection with repositioning 4- Right salpingoophorectomy 5- Minilaparotomy Surgeon: Dr. Montes De Oca Critical Power Install Technician: Dr. Ashok Elise Anesthesia: General Indications for Procedure: The patient is a 46 year old female with a 12 cm multi-cystic complex right adnexal mass and pain with normal CA-125 but minimally elevated CA-19-9 with all risks considered. After all options were presented with risks and benefits she agreed to a laparoscopy with a unilateral salpingoophorectomy and TLH/BSO Name: Bethany Lucas [facility] and staging if needed. Findings and Summary After exploration we observed morbid obesity obscuring exposure and a large complex right adnexal mass with minimal ascites. Because the adnexia was adherent to the sidewall it was necessary to dissect and reposition the right ureter. The right adnexia was then removed without incident and noted to be benign on frozen section. Procedure: After being prepped and draped in the usual manner an EEA sizer and pneumo- occluder was inserted vaginally for manipulation. A 5-millimeter trocar was then inserted cephlad to the umbilicus due to the size of the mass and prior surgery without incident and the abdomen was insufflated to 15 mm Hg. Subsequently, we then placed two 5-millimeter trocars laterally under direct visualization and a 12-millimeter trocar suprapubically cephlad to the prior incision midline. At this time any pelvic adhesions were lysed with sharp dissection and a Omni or Thunderbeat in the event that no bowel were adjacent. Subsequently we explored and noted a large complex right adnexal mass with minimal ascites with the mass densely adherent to the sidewall and poor exposure due partly to morbid obesity. The right adnexae was enlarged to 12- 14 cm and complex, with significant adhesions to the pelvic sidewall precluding mobilization and distorting the ureteral anatomy. Hence, the round ligament was transected with a Thunderbeat and the retroperitoneum opened parallel to the infundibulo-pelvic (IP) ligament with the Thunderbeat and Omni and the opening extended to define anatomy. The ureter was identified, and noted to be densely adherent to the pathology and somewhat distorted, hence requiring a ureteral dissection/repositioning as a separate procedure. The retroperitoneum was developed with a fan and the ureter was dissected away and repositioned with great care using the endo-dissector as well as the Omni also used for Name: [facility] retroperitoneal hemostasis as needed with the ureter visualized and mobilized as appropriate. This process was carried out throughout the ureteral length in the pelvis and it peristalsed normally once repositioned. Subsequently, the triple pedicle was desiccated and transected with a Thunderbeat. The adnexia with adherent peritoneum was mobilized with a Omni while visualizing the ureter with the Omni used for localized hemostasis as needed with the ureter visualized. Hence the ovary and tube were fully by desiccated and transaction of the IP-ligament with Thunderbeat which was reinforced with the endo-loop without incident with the ureter visualized. The adnexia was placed in a 15-millimeter sac and had the liquid contents removed and the mass was then removed by converting the suprapubic site into a 3 cm minilaparotomy with a scalpel and electrocautery and was sent to pathology and confirmed to be benign. Subsequently the minilaparotomy was partly closed with an endoclose using 0- Vicryl suture and the 12-millimeter trocar reinserted. After irrigating and assuring hemostasis the 12 millimeter trocar was removed and the fascia was closed with 0-vicryl using an endo-close devise with multiple sutures. The gas was removed and the skin of all sites then closed with interrupted subcutaneous 3-0 Vicryl suture and interrupted 5-0 Plain Gut suture. The EBL was 100ml and the patient tolerated the procedure well and left the OR in good condition. Obie Montes De Oca M.D. OBIE MONTES DE OCA MD Aug 13, 2016 20:14
--- NOTE | 2016-08-13 20:17 | PN ---
Date/Time of Note Date/Time of Note DATE: 08/13/16 TIME: 20:15 Assessment/Plan VTE Prophylaxis VTE Prophylaxis Intervention: SCD's Lines/Catheters IV [facility] (from [facility]): Peripheral IV Urinary Cath still in place: No Assessment/Plan Chief Complaint/Hosp Course Pelvic mass Problems: Assessment/Plan A- doing well P- adv diet and anticipate possible d/c tomorrow Subjective 24 Hr Interval Summary Free Text/Dictation S- questionable flatus, no problem voiding and OOB O- Resp- clear CVS- NSR Abd- slightly tender and clean Ext- NT A- doing well P- adv diet and anticipate possible d/c tomorrow Exam/Review of Systems Vital Signs Vitals Vital Signs Date Time Temp Pulse Resp B/P Pulse Ox O2 Delivery O2 Flow Rate FiO2 08/13/16 19:00 98.7 84 18 122/58 100 08/13/16 01:00 Room Air Intake and Output 08/12/16 08/12/16 08/13/16 15:00 23:00 07:00 Intake Total 0 ml 770 ml 1300 ml Output Total 800 ml 600 ml Balance -800 ml 770 ml 700 ml Results Result Diagram: 08/13/16 0430 08/13/16 0430 Results 24 hrs Laboratory Tests Test 08/12/16 22:50 08/13/16 04:30 Urine Bacteria RARE Urine Bilirubin NEGATIVE Urine Clarity CLEAR Urine Color LT. YELLOW Urine Glucose NEGATIVE Urine Hemoglobin TRACE Urine Ketones 3+ H Urine Leukocyte Esterase NEGATIVE Urine Microscopic RBC 2-5 Urine Microscopic WBC 0-2 Urine Nitrite NEGATIVE Urine Specific [place] 1.020 Urine Squamous Epithelial Cells FEW Urine Total Protein NEGATIVE Urine Urobilinogen 0.2 E.U./dL Urine pH 6.5 Anion Gap 18 H Basophils # 0.0 Basophils % 0.1 Blood Morphology Comment Blood Urea Nitrogen 8 Calcium Level 8.9 Carbon Dioxide Level 26 Chloride Level 101 Creatinine 0.61 Eosinophils # 0.0 Eosinophils % 0.0 Glucose Level 120 Hematocrit 33.0 L Hemoglobin 11.1 L INR International Normalized Ratio 1.03 Iron Level 81 Lymphocytes # 0.5 L Lymphocytes % 4.4 L Mean Corpuscular Hemoglobin 27.3 L Mean Corpuscular Hemoglobin Concent 33.7 Mean Corpuscular Volume 80.8 L Mean Platelet Volume 8.5 Monocytes # 0.3 Monocytes % 3.2 Neutrophils # 10.0 H Neutrophils % 92.3 H Nucleated Red Blood Cells # 0.0 Nucleated Red Blood Cells % 0.0 Percent Iron Saturation 27 Platelet Count 284 Potassium Level 4.7 Prothrombin Time 13.5 Prothrombin Time Ratio 1.1 Red Blood Count 4.08 L Red Cell Distribution Width 14.3 Sodium Level 140 Total Iron Binding Capacity 305 White Blood Count 10.8 # Medications Medications Current Medications Hydromorphone HCl (Dilaudid) 1 mg Q3H PRN IM pain; Start 08/07/16 at 04:00 Acetaminophen (Tylenol Tab) 650 mg Q6H PRN PO PAIN LEVEL 1-3 OR FEVER Last administered on 08/13/16 10:45; Admin Dose 650 MG; Start 08/07/16 at 08:00 Pantoprazole (Protonix Tab) 40 mg DAILY@06 PO Last administered on 08/13/16 05 :54; Admin Dose 40 MG; Start 08/09/16 at 06:00 Docusate Sodium (Colace) 100 mg BID PO Last administered on 08/13/16 20:10; Admin Dose 100 MG; Start 08/11/16 at 21:00 Atorvastatin Calcium 10 mg 10 mg DAILY@21 PO Last administered on 08/13/16 20: 10; Admin Dose 10 MG; Start 08/11/16 at 21:00 Potassium Cl/ Dextrose/Lact Ringer's (D5-Lr + KCl 20 Meq) 1,000 ml @ 100 mls/ hr Q10H IV Last administered on 08/13/16 04:08; Admin Dose 100 MLS/HR; Start 08/12/16 at 22:00 Ondansetron HCl (Zofran Inj) 4 mg Q6H PRN IV NAUSEA AND/OR VOMITING; Start at 21:00 Morphine Sulfate (morphine) 2 mg Q3H PRN IV PAIN; Start 08/12/16 at 21:00 Tramadol HCl 50 mg 50 mg Q6H PRN PO PAIN Last administered on 08/13/16 20:10; Admin Dose 50 MG; Start 08/12/16 at 21:00 Cefazolin Sodium (Ancef 1 Gm/50 ml (Pmx)) 50 ml @ 100 mls/hr Q8 IVPB Last administered on 08/13/16 14:18; Admin Dose 100 MLS/HR; Start 08/12/16 at 22:00 ; Stop 08/14/16 at 21:59 ANNY FORD MD Aug 13, 2016 20:17
[2016-08-14] MEDS: traMADol 50 MG TAB PO PRN (05:16)
[2016-08-14 05:35] LABS: BASOPHILS % 0.4 % (0.0-2.0); EOSINOPHILS # 0.1 10^3/ul (0.0-0.5); EOSINOPHILS % 1.9 % (0.0-7.0); HEMATOCRIT 30.9 % (37.0-47.0); HEMOGLOBIN 10.1 g/dl (12.0-16.0); LYMPHOCYTES # 1.2 10^3/ul (0.8-2.9); LYMPHOCYTES % 16.6 % (15.0-51.0); MEAN CORPUSCULAR HEMOGLOBIN 26.6 pg (29.0-33.0); MEAN CORPUSCULAR HGB CONC 32.7 g/dl (32.0-37.0); MEAN CORPUSCULAR VOLUME 81.3 fl (82.0-101.0); MEAN PLATELET VOLUME 8.6 fl (7.4-10.4); MONOCYTE # 0.5 10^3/ul (0.3-0.9); MONOCYTES % 7.5 % (0.0-11.0); NEUTROPHIL # 5.1 10^3/ul (1.6-7.5); NEUTROPHILS % 73.6 % (39.0-77.0); PLATELET COUNT 250 10^3/UL (140-440); RED CELL DISTRIBUTION WIDTH 14.6 % (11.5-14.5)
[2016-08-14 05:42] LABS: CONDITION 1; LH ANALYZER COMMENTS 1
[2016-08-14] MEDS: CEFAZOLIN 1 GM/50 ML (PMX) 50 ML IVPB SCH ×2 (05:51→14:26)
[2016-08-14] MEDS: PANTOPRAZOLE (EC) 40 MG TAB PO SCH (05:51)
[2016-08-14 05:58] LABS: POTASSIUM 3.7 mmol/L (3.5-5.1)
[2016-08-14 06:00] LABS: CREATININE 0.62 mg/dl (0.44-1.00)
[2016-08-14 06:01] LABS: CALCIUM 8.2 mg/dl (8.4-10.2)
[2016-08-14 08:25] VITALS: BP 112/55; RESP 18
[2016-08-14] MEDS ORDERED: TRAM50TA2 PO (09:52)
--- NOTE | 2016-08-14 10:03 | PDOCDIS ---
Discharge Instructions DIAGNOSIS Discharge Diagnosis: Right adnexal mass, R breast nodule CONDITION Patient Condition: Stable HOME CARE INSTRUCTIONS: Diet Instructions: Low Fat /Cholesterol ACTIVITY: Activity Restrictions: Slowly Increase Activity Rest between Activity No Sexual Activity Avoid Heavy Housework Bathing Restrictions: Tub Bath FOLLOW UP/APPOINTMENTS Appointments * Call Dr Montes De Oca's office for f/u and Pathology results. Name, Degree: Obie Montes De Oca MD Specialty: Gynecologic Oncology Comments: Office Address: [address] [place] [address] Office Office Fax: General Farm Manager: Gaby Tsang Status: Provisional * You need a repeat Mammogram / USS R breast in 6 months. Please have your primary doctor arrange this. THONY ARGUETA Aug 14, 2016 10:02
[2016-08-14] MEDS: D5-LR + KCL 20 MEQ 1,000 ML IV SCH (11:38)
--- NOTE | 2016-08-14 12:57 | DS ---
DATE OF ADMISSION: 08/07/2016 DATE OF DISCHARGE: 08/14/2016 PRESENTING COMPLAINT: Sudden onset of right pelvic pain. ADMISSION DIAGNOSES: 1. Large multicystic right adnexal mass, suspicious for malignancy. 2. Abdominal pain secondary to #1. 3. Normocytic anemia. CONSULTS ON THE CASE: Dr. Obie Montes De Oca. INTERVENTIONS: 1. After the emergency room evaluation, the patient underwent a CT of the abdomen and pelvis. It sh owed a large multisite cystic structure with soft tissue components within the right adnexa, suspici ous for cystadenoma/cystadenocarcinoma, with multiple small sclerotic densities within the pelvis an d bilateral proximal femurs, which could represent bone islands; however a followup for metastatic d isease is recommended, as well as subcutaneous stranding within the anterior pelvic wall with a smal l fluid collection measuring 10 x 4 x 3.7. 2. She underwent a breast ultrasound that was BIRAD 0, incomplete. Needs additional imaging evalua tion. They found a right 8 o'clock 4 mm benign-appearing nodule, for which a 6-month followup ultra sound is recommended. 3. The patient underwent a pelvic ultrasound that showed right renal enlargement with multiple cyst s of the right ovary, measuring 7.6 cm in greatest dimension. Nonvisualization of the left ovary. Sonographically normal uterus, with normal endometrial thickness. 4. The patient underwent an extremity venous study of both lower extremities that showed no sonogra phic evidence of DVTs. OPERATIONS: Includes a laparoscopic unilateral salpingo-oophorectomy that was done on 08/12/2016. POSTOPERATIVE DIAGNOSES: 1. Right benign neoplasm. Pathology pending. 2. Right ureteral distension. 3. Extensive pelvic adhesions. 4. Morbid obesity. PROCEDURES: 1. Laparoscopy. 2. Lysis of adhesion. 3. Lateral ureteral dissection with repositioning. 4. Right salpingo-oophorectomy. 5. Mini laparotomy. HOSPITAL COURSE: Full details are available in the chart for review. In summary, this is a very pl easant 46-year-old female who had just recently undergone at [facility] about 7 weeks prior to prese ntation. She has been having intermittent adnexal discomfort, swelling and a feeling of bloating si nce the procedure. However, her plastic surgeon felt this was due to postoperative gas and maybe fo rmation of scar tissue, but as the pain did not resolve the patient came to the emergency room, wher e a CT of the abdomen showed a large right-sided adnexal mass that the radiologist was concerned for possible neoplasm. She was immediately admitted and seen by Dr. Montes De Oca from gynecology surgery. He scheduled her for surgery and the patient was started on a bowel prep and pain control and furthe r investigations were done. A breast ultrasound did show a benign-appearing nodule on the right [address], and recommendation was for a repeat ultrasound in 6 months. Pathology results are pending from her right adnexal mass, and this will be followed up as an outpatient with Dr. Montes De Oca in the [facility]. The patient also has a chronic history of hypochromic microcytic anemia and she has been on iron supplementation prior to admission. An iron profile here in the hospital was not consistent with ir on deficiency, and so she will be continued on this regimen. DISPOSITION: At this time is to her home, with outpatient followup with Dr. Montes De Oca, her primary c are physician. FINAL DIAGNOSES: 1. Symptomatic large multicystic right adnexal mass concerning for malignancy; however, on visualiz ation, per gynecology surgery, looked benign; however, the patient did have an elevated CA 19.9. Sh e is status post laparoscopic unilateral salpingo-oophorectomy done on 08/12/2016. 2. 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 3. Recent tummy tuck surgery about 7 1/2 weeks ago. 4. Right benign-appearing breast nodule, for which the patient is to have a followup ultrasound in 6 months. 5. Dyslipidemia. Stable on home Lovastatin. Recommended home diet is a low cholesterol, low fat diet. Activities as tolerated. The patient was encouraged to ambulate and followup as mentioned above. Her followup should be to follow up on her pathology results with her gynecologic surgeon, as well as a repeat mammogram versus breast ultrasou nd in 6 months. This has been communicated to the patient in detail. Questions have been answered. The patient currently is awaiting gynecology clearance for discharge. If her discharge is approve d she will be discharged home in stable condition. If not, she will be further evaluated and furthe r observed in the hospital until cleared by gynecologic surgery. She, however, has remains in stabl e condition at this time. FINAL DISCHARGE MEDICATION: 1. Tramadol 50 mg p.o. q.6 p.r.n. pain. 2. Colace 100 mg p.o. b.i.d. 3. Ferrous gluconate 240 mg p.o. daily. 4. Lovastatin 10 mg p.o. at bedtime. 5. Magnesium hydroxide as needed for constipation. 6. Detrol-LA 2-mg capsule p.o. daily. Overall time spent on discharge coordination has been about 40 minutes. Dictated By: THONY ARGUETA MD, BA/KATY Conf#: [id number] DID#: [id number]
[2016-08-14] MEDS ORDERED: DOCUSATE SODIUM 100 MG CAP PO SCH (15:30)
[2016-08-14] MEDS ORDERED: METOCLOPRAMIDE 10 MG INJ IV SCH (15:30)
[2016-08-14] MEDS: ACETAMINOPHEN 325 MG TAB PO PRN (17:00)
[2016-08-14] MEDS ORDERED: SENNA TAB PO SCH (21:00)
== END 2016-08-14 19:30 | disposition home or self-care (01) | DRG 983 ==
LOC: FTE 19:53 → MS1 08-07 03:26
PROVIDERS: ADMIT Internal Medicine; ATTEND Internal Medicine
PROC: 0UT54ZZ Resection of Right Fallopian Tube, Percutaneous Endoscopic Approach (ICD-10-PCS; principal; 2016-08-07)
PROC: 0UT04ZZ Resection of Right Ovary, Percutaneous Endoscopic Approach (ICD-10-PCS; 2016-08-07)
PROC: 0W9G4ZZ Drainage of Peritoneal Cavity, Percutaneous Endoscopic Approach (ICD-10-PCS; 2016-08-07)
PROC: 30233N1 Transfusion of Nonautologous Red Blood Cells into Peripheral Vein, Percutaneous Approach (ICD-10-PCS; 2016-08-10)
DX: R19.09 Other intra-abdominal and pelvic swelling, mass and lump (principal); E66.01 Morbid (severe) obesity due to excess calories; I10 Essential (primary) hypertension; D63.0 Anemia in neoplastic disease; R59.9 Enlarged lymph nodes, unspecified; D63.8 Anemia in other chronic diseases classified elsewhere; N63 Unspecified lump in breast; E78.5 Hyperlipidemia, unspecified; K21.9 Gastro-esophageal reflux disease without esophagitis; Q62.8 Other congenital malformations of ureter; N73.6 Female pelvic peritoneal adhesions (postinfective); R18.8 Other ascites; Z68.31 Body mass index [BMI] 31.0-31.9, adult; Z98.890 Other specified postprocedural states
CPT/HCPCS: 36415; 36430; 74177; 76641; 76830; 76856; 80048; 80053; 80061; 81001; 81003; 82378; 83540; 83690; 83735; 84100; 85025; 85610; 86301; 86304; 86850; 86900; 86901; 86920; 88104; 88305; 88307; 88331; 93923; 96374; 96375; J1940; J0330; J0690; J1100; J1200; J2250; J2270; J2274; J2405; J2710; J2765; J3010; J3480; J7030; J7120; P9016; Q9967